=== PATIENT | female | born 1940 | race Caucasian/White ===

== ENCOUNTER → 2024-10-20 | Outpatient (CLI) | payer MEDICARE, BC, SELFPAY ==
--- NOTE | 2024-10-20 13:30 | XR_ITS ---
Examination: Shoulder,left, 3 views Technique: Shoulder AP internal rotation, AP external rotation, Y view shoulder, 3 views Exam date and time: October 20, 2024 1334 hours Comparison August 19, 2024 INDICATIONS: Acute fracture humeral neck June 13, 2024 FINDINGS: Healed fracture humeral neck Stable and satisfactory alignment Mild narrowing glenohumeral joint IMPRESSION: Healed fracture humeral neck with satisfactory alignment
== END | disposition home or self-care (01) ==
PROVIDERS: PCP Physician Assistant; Referring Provider Orthopaedic Surgery; Visit Provider Orthopaedic Surgery
DX: Z87.81 Personal history of (healed) traumatic fracture (principal)
CPT/HCPCS: 73030

== ENCOUNTER 2024-10-24 05:40 | Emergency (ER) | payer MEDICARE, BC, SELFPAY ==
[2024-10-24 05:41] VITALS: BMI 32.2
[2024-10-24 05:46] VITALS: BP 163/93; PULSE 109; RESP 18; TEMP 37.3; O2SAT 98
--- NOTE | 2024-10-24 06:23 | PD.EDRME ---
Rapid Medical Screening Exam RME Arrival date/time: 10/24/24 05:40 Chief Complaint: Abdominal Pain Time Seen by Provider: 10/24/24 06:09 Vital signs: Vital Signs Temperature 99.2 F 10/24/24 05:46 Pulse Rate 109 H 10/24/24 05:46 Respiratory Rate 18 10/24/24 05:46 Blood Pressure 163/93 H 10/24/24 05:46 Pulse Oximetry (%) 98 10/24/24 05:46 RME Narrative: lower abdominal cramping, intermittent diarrhea x2 days
[2024-10-24 07:28] LABS: Collection Type, Urine Clean Catch
[2024-10-24 07:29] LABS: Basophils # (Auto) 0.1 Thou/mm3 (0.0-0.2); Basophils % (Auto) 0 % (0-2.5); Eosinophils # (Auto) 0.4 Thou/mm3 (0.0-0.5); Eosinophils % (Auto) 2 % (0-10); Hematocrit 38.2 % (36.0-46.0); Hemoglobin 12.5 g/dL (12.0-16.0); Immature Granulocytes % (Auto) 0 % (0-0); Immature Granulocytes Auto 0.08 Thou/mm3 (0.00-0.00); Lymphocytes # (Auto) 1.9 Thou/mm3 (1.0-4.8); Lymphocytes % (Auto) 10 % (10-50); Mean Corpuscular HGB Conc 32.7 g/dl (31.0-37.0); Mean Corpuscular Hemoglobin 30.3 pg (25.0-35.0); Mean Corpuscular Volume 93 fL (80-100); Monocytes # (Auto) 1.4 Thou/mm3 (0.0-0.8); Monocytes % (Auto) 8 % (0-12); Neutrophils # (Auto) 14.1 Thou/mm3 (1.8-7.7); Neutrophils % (Auto) 79 % (37-80); Nucleated Red Blood Cell % 0 /100 WBC (0); Platelet Count 297 Thou/mm3 (140-440); RDW Standard Deviation 45.1 fL (36.4-46.3); Red Blood Count 4.13 Miln/mm3 (4.00-5.20); White Blood Count 17.9 Thou/mm3 (3.6-11.0)
[2024-10-24 07:39] LABS: Bilirubin,Urine Negative (Negative); Blood,Urine Trace (Negative); Clarity,Urine Clear (Clear/Hazy); Color,Urine Lt-Yellow (Lt Yel-Yel); Glucose, Urine Negative (Negative); Ketones,Urine Negative (Negative); Leukocyte Esterase,Urine Positive (Negative); Nitrite,Urine Negative (Negative); PH,Urine 5.5 (5.0-7.0); Protein,Urine Trace (Neg - Trace); RBC,Urine 3 /hpf (0-3); Specific Gravity,Urine 1.015 (1.001-1.035); Squamous Epithelial Cell,Urine 2 /hpf (0-5); Urobilinogen,Urine Negative mg/dL (0.0-1.0); WBC,Urine 4 /hpf (0-5)
[2024-10-24 07:53] LABS: Alanine Aminotransferase 9 U/L (10-49); Albumin, Serum 4.7 gm/dL (3.4-4.8); Albumin/Globulin Ratio 1.7 (1.2-2.2); Alkaline Phosphatase 86 U/L (46-116); Anion Gap 6 (7-16); Aspartate Amino Transferase 13 U/L (0-34); BUN/Creatinine Ratio 13 Ratio (12-20); Bilirubin,Total 0.6 mg/dL (0.3-1.2); Blood Urea Nitrogen 16 mg/dL (9-23); Calcium 9.8 mg/dL (8.3-10.6); Calcium (Corrected) 9.8 mg/dL (8.5-10.1); Carbon Dioxide 26.9 mMol/L (20.0-31.0); Chloride 104 mMol/L (98-107); Creatinine (Component) 1.2 mg/dL (0.6-1.3); Estimated Creatinine Clearance 36.1 mL/min (>60); Globulin 2.8 gm/dL (2.3-3.5); Glucose 155 mg/dL (74-106); Lipase 43 U/L (12-53); Osmolality,Calculated 278 (275-295); Potassium 4.4 mMol/L (3.4-5.1); Sodium 137 mMol/L (136-145); Total Protein 7.5 gm/dL (5.7-8.2); eGFR 45 See Note
--- NOTE | 2024-10-24 08:00 | XR_ITS ---
Examination: CT abdomen with intravenous contrast CT pelvis with intravenous contrast 2-D coronal reconstructions 2-D sagittal reconstructions Date and time of exam:October 24, 2024 1010 hrs. Comparison May 04, 2024 Indications: Lower abdominal pain beginning 3 days ago, history acute diverticulitis May 04, 2024. CTDI: vol (mGy) 11 DLP: (mGycm) 546 Technique: Multiple axial sections of the abdomen and pelvis have been obtained. 64 slice high-resolution scanner used. 3 mm axial sections have been obtained, post intravenous injection 60 cc [id number] 2-D sagittal, coronal reconstructions obtained. Low dose protocols were performed. One or more of the following dose reduction techniques were used; automated exposure control, adjustment of the mA and/or KV according to patient size, use of iterative reconstruction technique. Findings: No focal liver or splenic lesions No gallstones Pancreatic calcifications Atrophic right kidney No renal or ureteral calculi, no hydronephrosis Heavy abdominal aortic calcification no aneurysmal dilatation Tiny fat-containing umbilical hernia Normal appendix Colonic diverticulosis Acute diverticulitis sigmoid colon, no peridiverticular abscess Mild thickening of the urinary bladder wall Advanced disc narrowing L5-S1 Impression: Acute sigmoid diverticulitis, no pelvic abscess
[2024-10-24] MEDS: DICYCLOMINE 10 MG CAPSULE 20 MG PO (10:32)
--- NOTE | 2024-10-24 10:55 | EDNOTE_ITS ---
ED Abdominal Pain RME/HPI General Chief Complaint: Abdominal Pain Stated complaint: LOWER ABD PAIN Time seen by provider: 10/24/24 06:09 Arrival date/time: 10/24/24 05:40 Source: patient, RN notes reviewed and old records reviewed Mode of arrival: ambulatory Limitations: no limitations RME / HPI RME / HPI narrative: 84yof presents to ED for generalized lower abdominal cramping, intermittent diarrhea x2 days. Hx diverticulitis in past. No fever, n/v, bloody stools or urinary symptoms reported. Patient took tylenol last night with mild relief. Related Data Home Medications ?Medication ?Instructions ?Recorded ?Confirmed levothyroxine 50 mcg tablet 50 mcg PO EVERYOTHERDAY 06/29/18 09/16/22 ezetimibe 10 mg tablet 10 mg PO QDAY 03/12/21 09/16/22 lisinopril 40 mg tablet 20 mg PO QDAY 03/12/21 09/16/22 cholecalciferol (vitamin D3) 25 25 mcg PO QDAY 09/16/22 09/16/22 mcg (1,000 unit) tablet (Vitamin D3) Previous Rx's ?Medication ?Instructions ?Recorded ciprofloxacin HCl 500 mg tablet 500 mg PO BID #20 tabs 09/18/23 (Cipro) amoxicillin 875 mg-potassium 1 tab PO BID #20 tabs 10/01/23 clavulanate 125 mg tablet amoxicillin 875 mg-potassium 1 tab PO Q12H #14 tabs 11/23/23 clavulanate 125 mg tablet dicyclomine 10 mg capsule 10 mg PO TID PRN abdominal pain 11/23/23 #20 caps ciprofloxacin HCl 500 mg tablet 500 mg PO BID #10 tabs 02/17/24 (Cipro) dicyclomine 20 mg tablet 20 mg PO BID #14 tabs 02/17/24 metronidazole 500 mg tablet 500 mg PO BID #10 tabs 02/17/24 hydrocodone 5 mg-acetaminophen 325 1 tab PO Q6H PRN pain #14 tabs 06/13/24 mg tablet acetaminophen 500 mg tablet 1,000 mg (2 x 500 mg) PO Q6H PRN 10/24/24 (Tylenol Extra Strength) pain #30 tabs amoxicillin 875 mg-potassium 1 tab PO BID 10 days #20 tabs 10/24/24 clavulanate 125 mg tablet dicyclomine 20 mg tablet 20 mg PO Q6HR PRN abdominal pain 10/24/24 #30 tabs Allergies Allergy/AdvReac Type Severity Reaction Status Date / Time Sulfa (Sulfonamide Allergy Severe Swelling Verified 10/24/24 05:42 Antibiotics) of Lip/Tongue/Throat Review of Systems Review of Systems Systems Reviewed: All systems reviewed, normal except as documented Constitutional Constitutional: Denies chills and Denies fever(s) Gastrointestinal Gastrointestinal: Reports abdominal pain, Denies hematochezia, Reports loose stools, Denies melena, Denies nausea and Denies vomiting Genitourinary Genitourinary: Denies dysuria and Denies flank pain Past Medical History Past Medical History CARDIAC: Positive Cardiac Disorders, Hypercholesterolemia and Hypertension RESPIRATORY: Positive Asthma and Bronchitis GASTROINTESTINAL: Positive Gastrointestinal Disorders, Diverticulitis and Obesity GENITOURINARY: Positive Renal Disease and Kidney Stones REPRODUCTIVE: Positive Previous Pregnancies MUSCULOSKELETAL: Positive Musculoskeletal Disorders and Arthritis ENT: Positive Glaucoma ENDOCRINE: Positive Endocrine Disorders, Diabetes Mellitus Type 2 (Pioglitazone pills.) and Hypothyroidism HEMATOLOGIC: Positive Blood Disorders Surgical History SURGICAL: Positive Vascular Surgery, Arthroscopy and Hysterectomy Social History SMOKING STATUS: Never smoker ED Exam General Limitations: Present no limitations General appearance: Present alert, in no apparent distress and obese Head Head exam: Present atraumatic and normocephalic Eye Eye exam: Present normal appearance, PERRL and EOMI ENT ENT exam: Present normal exam and mucous membranes moist Neck Neck exam: Present normal inspection and full ROM Chest Chest inspection: Present normal inspection and symmetric chest wall rise Respiratory Respiratory exam: Present normal lung sounds bilaterally; Absent respiratory distress Cardiovascular Cardiovascular exam: Present regular rate and normal rhythm Abdominal Exam Abdominal exam: Present soft and tenderness (mild, suprapubic); Absent distention, guarding or rebound Extremities Exam Extremities exam: Present normal inspection and full ROM Back Exam Back exam: Absent CVA tenderness (R) or CVA tenderness (L) Neurological Exam Neurological exam: Present alert and oriented X3 Psychiatric Psychiatric exam: Present normal affect and normal mood Skin Skin exam: Present warm, dry, intact and normal color Course Quality Measures none Orders Category Date Time Status CT Screening NOW Care 10/24/24 08:[address] abdomen pelvis w con Stat Exams 10/24/24 08:00 Completed CBC Stat Lab 10/24/24 07:13 Completed CMP [Comprehensive Metabolic Panel] Stat Lab 10/24/24 07:13 Completed Lipase Stat Lab 10/24/24 07:13 Completed UA [Urinalysis] Stat Lab 10/24/24 06:54 Completed Dicyclomine [Bentyl] Med 10/24/24 10:19 Discontinued 20 mg PO X1 ONE Vital Signs Vital signs: Vital Signs Temperature 99.2 F 10/24/24 05:46 Pulse Rate 109 H 10/24/24 05:46 Respiratory Rate 18 10/24/24 05:46 Blood Pressure 163/93 H 10/24/24 05:46 Pulse Oximetry (%) 98 10/24/24 05:46 Abdominal Pain MDM MDM Narrative MDM Narrative:: 84yof presents to ED for generalized lower abdominal cramping, intermittent diarrhea x2 days. Hx diverticulitis in past. No fever, n/v, bloody stools or urinary symptoms reported. Patient took tylenol last night with mild relief. Patient is non-toxic appearing, afebrile, vitals are stable. Non-surgical abdomen on exam. Offered admission however, patient feels comfortable with outpatient mgmt. Encouraged adequate fluids, pain mgmt, close pcp follow up. Stable for dc, RTED precautions given. Patient data External records reviewed:: [facility] previous records (06/13/24 ED visit for accidental fall) Clinical information provided by:: patient Social determinants that could affect healthcare access:: none Patient has the following chronic illnesses:: diverticulitis How is presenting disease/condition affected by chronic disease/condition?: caused by Evaluation data The following diagnostics were reviewed and interpreted by me:: lab results and radiology exam(s) Lab and/or radiology exams considered but not ordered:: none Interpretation Summary: wbc 17.[address] abd/pelvis: Impression: Acute sigmoid diverticulitis, no pelvic abscess Dictated By: Joselo Obrien MD Medications / Prescriptions Medications or Prescriptions considered but not ordered:: none Medication administrations:: Medication Administration History Discontinued Medications Dicyclomine HCl (Dicyclomine 10 Mg Capsule) 20 mg PO X1 ONE Stop: 10/24/24 10:20 Last Admin: 10/24/24 10:32 Dose: 20 mg Documented By: KF above medication administered in ED Consultations Consultation(s) initiated? (list below): No Diagnosis Differential diagnosis abdominal pain: abdominal pain, calculus of kidney, cons tipation, diverticulitis, small bowel obstruction and other (uti) Most likely diagnosis given after review of the tests above:: diverticulitis Admission Indicated Admission indicated?: not indicated Admission Request Was there a request for admission?: No Disposition Plan Disposition Plan: Discharge Discharge Attestation Discharge Attestation: The patient and all family members were given an opportunity to ask questions and understood the discharge instructions. Discharge instructions specifically effects, indications for sooner follow up or return to the emergency department, and the expected course of current diagnosis. Patient condition: Stable Discharge Plan Plan Patient Disposition: HOME (Self Care) Patient condition on transfer: Stable Prescriptions/Referrals Prescriptions/Med Rec: New amoxicillin-pot clavulanate 875-125 mg tablet 1 tab PO BID 10 Days Qty: 20 0RF acetaminophen [Tylenol Extra Strength] 500 mg tablet 1,000 mg PO Q6H PRN (Reason: pain) Qty: 30 0RF dicyclomine 20 mg tablet 20 mg PO Q6HR PRN (Reason: abdominal pain) Qty: 30 0RF No Action levothyroxine 50 mcg Tablet 50 mcg PO EVERYOTHERDAY lisinopril 40 mg Tablet 20 mg PO QDAY ezetimibe 10 mg Tablet 10 mg PO QDAY cholecalciferol (vitamin D3) [Vitamin D3] 25 mcg (1,000 unit) Tablet 25 mcg PO QDAY dicyclomine 10 mg capsule 10 mg PO TID PRN (Reason: abdominal pain) Qty: 20 0RF amoxicillin-pot clavulanate 875-125 mg tablet 1 tab PO Q12H Qty: 14 0RF ciprofloxacin HCl [Cipro] 500 mg tablet 500 mg PO BID Qty: 10 0RF metronidazole 500 mg tablet 500 mg PO BID Qty: 10 0RF dicyclomine 20 mg tablet 20 mg PO BID Qty: 14 0RF ciprofloxacin HCl [Cipro] 500 mg tablet 500 mg PO BID Qty: 20 0RF amoxicillin-pot clavulanate 875-125 mg tablet 1 tab PO BID Qty: 20 0RF hydrocodone-acetaminophen 5-325 mg tablet 1 tab PO Q6H MDD 4 PRN (Reason: pain) Qty: 14 0RF Referrals: Joleen Gibbs PA-C [Primary Care Provider] - In 1 week Problem List Clinical Impression: Diverticulitis Patient/Caregiver Discharge Instructions Education Materials: ED Diverticulitis Print Language: [place]an Stand Alone Forms: Jocy Award Info., Patient Portal Info Letter PA/DEBRIDGING MACHINE OPERATOR Supervising Physician PA/DEBRIDGING MACHINE OPERATOR Supervising Physician: Adriana
== END 2024-10-24 11:17 | disposition home or self-care (01) ==
PROVIDERS: Physician Assistant; Emergency Provider Emergency Medicine; PCP Physician Assistant
DX: K57.32 Diverticulitis of large intestine without perforation or abscess without bleeding (principal)
CPT/HCPCS: 36415; 74177; 80053; 81001; 83690; 85025; 99285; A4649; Q9967; A9270

== ENCOUNTER → 2024-11-05 | Outpatient (CLI) | payer MEDICARE, BC, SELFPAY ==
[2024-11-05 08:54] LABS: Glucose Estimated Average 163 mg/dL (80-131); Hemoglobin A1C 7.3 % Hgb (4.8-6.0)
[2024-11-05 09:19] LABS: Alanine Aminotransferase 12 U/L (10-49); Albumin, Serum 4.3 gm/dL (3.4-4.8); Albumin/Globulin Ratio 1.6 (1.2-2.2); Alkaline Phosphatase 79 U/L (46-116); Anion Gap 7 (7-16); Aspartate Amino Transferase 10 U/L (0-34); BUN/Creatinine Ratio 19 Ratio (12-20); Bilirubin,Total 0.3 mg/dL (0.3-1.2); Blood Urea Nitrogen 25 mg/dL (9-23); Calcium 9.8 mg/dL (8.3-10.6); Calcium (Corrected) 9.8 mg/dL (8.5-10.1); Cardiac Risk Estimate 4.3 RATIO (3.7-5.6); Chloride 105 mMol/L (98-107); Cholesterol 207 mg/dL (132-200); Creatinine (Component) 1.3 mg/dL (0.6-1.3); Globulin 2.7 gm/dL (2.3-3.5); Glucose 142 mg/dL (74-106); HDL Cholesterol 48 mg/dL (40-60); LDL Cholesterol,Calculated 130 mg/dL (0-130); Osmolality,Calculated 285 (275-295); Sodium 140 mMol/L (136-145); Thyroid Stimulating Hormone 2.78 uIU/mL (0.55-4.78); Triglycerides 145 mg/dL (30-150); eGFR 41 See Note
== END | disposition home or self-care (01) ==
LOC: COPL 06:41
PROVIDERS: PCP Family Medicine; Referring Provider Physician Assistant; Visit Provider Physician Assistant
DX: E78.5 Hyperlipidemia, unspecified (principal); E03.9 Hypothyroidism, unspecified; E11.65 Type 2 diabetes mellitus with hyperglycemia; I10 Essential (primary) hypertension
CPT/HCPCS: 36415; 80053; 80061; 83036; 84443

== ENCOUNTER 2024-11-24 10:09 | Emergency (ER) | payer MEDICARE, SELFPAY ==
[2024-11-24 10:10] VITALS: BP 147/84; PULSE 92; RESP 18; TEMP 36.7; O2SAT 99; BMI 32.8
--- NOTE | 2024-11-24 10:35 | XR_ITS ---
Examination: Foot, right, 3 views Technique: AP, oblique, lateral views foot, 3 views Date and time of exam: November 24, 2024 1048 hours INDICATIONS: Injury to the foot today, foot pain. FINDINGS: Severe osteopenia with areas of focal osteopenia Mild widening at the proximal interphalangeal joint fourth digit, clinical correlation advised Old deformity distal fifth metatarsal No acute fracture IMPRESSION: No definite acute fracture There is widening, mild at the proximal interphalangeal joint fourth digit, clinical correlation advised Given the severe osteopenia, suggest short-term follow-up foot films as clinically warranted
--- NOTE | 2024-11-24 10:35 | XR_ITS ---
EXAMINATION: Ankle, right 3 views . Technique: Ankle AP, oblique, lateral 3 views Date and time of exam: November 24, 2024 1048 hours INDICATIONS: Ankle sprain today with ankle pain FINDINGS: Severe osteopenia No acute fracture No ankle dislocation IMPRESSION: No acute fracture Given the severe osteopenia, recommend 1-2 day follow-up ankle films
--- NOTE | 2024-11-24 11:34 | EDNOTE_ITS ---
<Statement entered by Nithya Obando MD - 11/24/24 16:18> As co-signing physician, I was present and available for consult prn. I concur with the plan and care as documented by the midlevel provider. Lower Extremity Injury RME/HPI General Chief Complaint: Ankle/Foot Injury Stated Complaint: r foot injury Time Seen by Provider: 11/24/24 10:35 Arrival date/time: 11/24/24 10:09 84-year-old female presents emergency department complains of right ankle and foot injury today patient reports no other injuries Limitations: no limitations Related Data Home Medications ?Medication ?Instructions ?Recorded ?Confirmed levothyroxine 50 mcg tablet 50 mcg PO EVERYOTHERDAY 06/29/18 09/16/22 ezetimibe 10 mg tablet 10 mg PO QDAY 03/12/21 09/16/22 lisinopril 40 mg tablet 20 mg PO QDAY 03/12/21 09/16/22 cholecalciferol (vitamin D3) 25 25 mcg PO QDAY 09/16/22 09/16/22 mcg (1,000 unit) tablet (Vitamin D3) Previous Rx's ?Medication ?Instructions ?Recorded ciprofloxacin HCl 500 mg tablet 500 mg PO BID #20 tabs 09/18/23 (Cipro) amoxicillin 875 mg-potassium 1 tab PO BID #20 tabs 10/01/23 clavulanate 125 mg tablet amoxicillin 875 mg-potassium 1 tab PO Q12H #14 tabs 11/23/23 clavulanate 125 mg tablet dicyclomine 10 mg capsule 10 mg PO TID PRN abdominal pain 11/23/23 #20 caps ciprofloxacin HCl 500 mg tablet 500 mg PO BID #10 tabs 02/17/24 (Cipro) dicyclomine 20 mg tablet 20 mg PO BID #14 tabs 02/17/24 metronidazole 500 mg tablet 500 mg PO BID #10 tabs 02/17/24 hydrocodone 5 mg-acetaminophen 325 1 tab PO Q6H PRN pain #14 tabs 06/13/24 mg tablet acetaminophen 500 mg tablet 1,000 mg (2 x 500 mg) PO Q6H PRN 10/24/24 (Tylenol Extra Strength) pain #30 tabs dicyclomine 20 mg tablet 20 mg PO Q6HR PRN abdominal pain 10/24/24 #30 tabs Allergies Allergy/AdvReac Type Severity Reaction Status Date / Time Sulfa (Sulfonamide Allergy Severe Swelling Verified 11/24/24 10:12 Antibiotics) of Lip/Tongue/Throat Review of Systems Review of Systems Systems Reviewed: All systems reviewed, normal except as documented Constitutional Constitutional: Reports system reviewed and no additional complaints, except as documented, Denies fever(s) and Denies headache(s) Eyes Eyes: Reports system reviewed and no additional complaints, except as documented and Denies blurry vision ENT Ears, Nose, Mouth, and Throat: Reports system reviewed and no additional complaints, except as documented, Denies headache(s), Denies nasal congestion and Denies nasal discharge Cardiovascular Cardiovascular: Reports system reviewed and no additional complaints, except as documented, Denies chest pain and Denies dyspnea Respiratory Respiratory: Reports system reviewed and no additional complaints, except as documented, Denies chest congestion, Denies cough and Denies dyspnea Gastrointestinal Gastrointestinal: Reports system reviewed and no additional complaints, except as documented and Denies abdominal pain Musculoskeletal Musculoskeletal: Reports system reviewed and no additional complaints, except as documented, Reports arthralgias, Denies deformity, Denies joint swelling, Denies numbness, Reports stiffness and Denies tingling Integumentary/Breasts Skin/Breast: Reports system reviewed and no additional complaints, except as documented and Denies rash Neurologic Neurologic: Reports system reviewed and no additional complaints, except as documented, Reports as per HPI, Denies headache(s), Denies numbness and Denies tingling Past Medical History Past Medical History NEUROLOGIC: Negative Neurological Disorders or Seizures CARDIAC: Positive Cardiac Disorders, Hypercholesterolemia and Hypertension; Negative Congestive Heart Failure RESPIRATORY: Positive Asthma and Bronchitis; Negative Chronic Obstructive Pulmonary Disease (COPD) GASTROINTESTINAL: Positive Gastrointestinal Disorders, Diverticulitis and Obesity GENITOURINARY: Positive Renal Disease and Kidney Stones; Negative Genitourinary Disorders REPRODUCTIVE: Positive Previous Pregnancies MUSCULOSKELETAL: Positive Musculoskeletal Disorders and Arthritis ENT: Positive Glaucoma ENDOCRINE: Positive Endocrine Disorders, Diabetes Mellitus Type 2 (Pioglitazone pills.) and Hypothyroidism; Negative Diabetes Mellitus Type 1 HEMATOLOGIC: Positive Blood Disorders; Negative Sickle Cell Disease OTHER HISTORY: Negative Autoimmune Disease, Blood Transfusions, Anesthesia Reactions or Cancer Surgical History SURGICAL: Positive Vascular Surgery, Arthroscopy and Hysterectomy Social History SMOKING STATUS: Never smoker ED Exam General Limitations: Present no limitations General appearance: Present alert and in no apparent distress Head Head exam: Present atraumatic Eye Eye exam: Present normal appearance, PERRL and EOMI ENT ENT exam: Present normal exam, normal oropharynx and mucous membranes moist Neck Neck exam: Present normal inspection, full ROM and trachea midline Chest Chest inspection: Present normal inspection and symmetric chest wall rise Respiratory Respiratory exam: Present normal lung sounds bilaterally Cardiovascular Cardiovascular exam: Present regular rate, normal rhythm and normal heart sounds Abdominal Exam Abdominal exam: Present soft and normal bowel sounds Extremities Exam Extremities exam: Present full ROM, normal capillary refill and other (Right foot, right ankle pain) Back Exam Back exam: Present normal inspection and full ROM Neurological Exam Neurological exam: Present alert, oriented X3 and CN II-XII intact Psychiatric Psychiatric exam: Present normal affect and normal mood Skin Skin exam: Present warm, dry, intact and normal color Course Quality Measures none Orders Category Date Time Status XR ankle comp RT min 3V Stat Exams 11/24/24 10:35 Completed XR foot comp RT min 3V Stat Exams 11/24/24 10:35 Completed Vital Signs Vital signs: Vital Signs Temperature 98.1 F 11/24/24 10:10 Pulse Rate 92 11/24/24 10:10 Respiratory Rate 18 11/24/24 10:10 Blood Pressure 147/84 H 11/24/24 10:10 Pulse Oximetry (%) 99 11/24/24 10:10 Oxygen Delivery Method Room Air 11/24/24 10:10 O2 saturation 99% room air within normal limits Extremity Injury, Lower MDM Narrative MDM Narrative:: 84-year-old female presents emergency department complains of right ankle and foot injury today patient reports no other injuries On exam patient well-appearing patient does not appear ill or toxic Imaging obtained no acute fracture or dislocation noted As patient has significant arthritis and osteopenia patient instructed have repeat x-ray if symptoms persist or worsen Patient already has her own ankle brace in place Patient discharged home in no distress to follow-up with primary care doctor in the next 24 to 48 hours and for any worsening symptoms to return to the ER immediately Patient data External records reviewed:: [facility] previous records Clinical information provided by:: patient Social determinants that could affect healthcare access:: none Patient has the following chronic illnesses:: See history How is presenting disease/condition affected by chronic disease/condition?: uneffected by Evaluation data The following diagnostics were reviewed and interpreted by me:: radiology exam(s) Lab and/or radiology exams considered but not ordered:: Radiology obtain Interpretation Summary: Reviewed by me Medications / Prescriptions Medications or Prescriptions considered but not ordered:: Given Medication administrations:: Given Consultations Consultation(s) initiated? (list below): No Diagnosis Extremity Injury, Lower Differential Diagnosis: ankle sprain and strain and ankle fracture Most likely diagnosis given after review of the tests above:: Foot sprain Admission Indicated Admission indicated?: not indicated Admission Request Was there a request for admission?: No Disposition Plan Disposition Plan: Discharge Discharge Attestation Discharge Attestation: The patient and all family members were given an opportunity to ask questions and understood the discharge instructions. Discharge instructions specifically effects, indications for sooner follow up or return to the emergency department, and the expected course of current diagnosis. Patient condition: Stable Discharge Plan Plan Patient Disposition: HOME (Self Care) Disposition Comment: Stable Prescriptions/Referrals Prescriptions/Med Rec: No Action levothyroxine 50 mcg Tablet 50 mcg PO EVERYOTHERDAY lisinopril 40 mg Tablet 20 mg PO QDAY ezetimibe 10 mg Tablet 10 mg PO QDAY cholecalciferol (vitamin D3) [Vitamin D3] 25 mcg (1,000 unit) Tablet 25 mcg PO QDAY dicyclomine 10 mg capsule 10 mg PO TID PRN (Reason: abdominal pain) Qty: 20 0RF amoxicillin-pot clavulanate 875-125 mg tablet 1 tab PO Q12H Qty: 14 0RF ciprofloxacin HCl [Cipro] 500 mg tablet 500 mg PO BID Qty: 10 0RF metronidazole 500 mg tablet 500 mg PO BID Qty: 10 0RF dicyclomine 20 mg tablet 20 mg PO BID Qty: 14 0RF acetaminophen [Tylenol Extra Strength] 500 mg tablet 1,000 mg PO Q6H PRN (Reason: pain) Qty: 30 0RF dicyclomine 20 mg tablet 20 mg PO Q6HR PRN (Reason: abdominal pain) Qty: 30 0RF ciprofloxacin HCl [Cipro] 500 mg tablet 500 mg PO BID Qty: 20 0RF amoxicillin-pot clavulanate 875-125 mg tablet 1 tab PO BID Qty: 20 0RF hydrocodone-acetaminophen 5-325 mg tablet 1 tab PO Q6H MDD 4 PRN (Reason: pain) Qty: 14 0RF Referrals: Joleen Gibbs PA-C [Primary Care Provider] - In 1 week Problem List Clinical Impression: Ankle sprain Patient/Caregiver Discharge Instructions Education Materials: ED Ankle Sprain (Adult) Additional Instructions: If your symptoms persist please have repeat x-rays in 3 to 5 days for worsening symptoms or concerns to return to the ER immediately Print Language: U[place] Stand Alone Forms: Jocy Award Info., Patient Portal Info Letter PA/PARISH VISITOR Supervising Physician PA/PARISH VISITOR Supervising Physician: Dr. OBANDO
== END 2024-11-24 11:49 | disposition home or self-care (01) ==
PROVIDERS: Emergency Provider Emergency Medicine; PCP Physician Assistant
DX: S93.401A Sprain of unspecified ligament of right ankle, initial encounter (principal); S99.921A Unspecified injury of right foot, initial encounter; M85.89 Other specified disorders of bone density and structure, multiple sites; M19.90 Unspecified osteoarthritis, unspecified site; X58.XXXA Exposure to other specified factors, initial encounter
CPT/HCPCS: 73610; 73630; 99283

== ENCOUNTER → 2024-12-28 | Outpatient (CLI) | payer MEDICARE, BC, SELFPAY ==
[2024-12-28 15:09] LABS: Collection Type, Urine Clean Catch
[2024-12-28 15:42] LABS: Basophils # (Auto) 0.1 Thou/mm3 (0.0-0.2); Basophils % (Auto) 1 % (0-2.5); Eosinophils # (Auto) 0.8 Thou/mm3 (0.0-0.5); Eosinophils % (Auto) 8 % (0-10); Hematocrit 36.8 % (36.0-46.0); Hemoglobin 11.7 g/dL (12.0-16.0); Immature Granulocytes % (Auto) 0 % (0-0); Immature Granulocytes Auto 0.04 Thou/mm3 (0.00-0.00); Lymphocytes % (Auto) 21 % (10-50); Mean Corpuscular HGB Conc 31.8 g/dl (31.0-37.0); Mean Corpuscular Volume 91 fL (80-100); Monocytes # (Auto) 0.9 Thou/mm3 (0.0-0.8); Monocytes % (Auto) 9 % (0-12); Neutrophils # (Auto) 5.9 Thou/mm3 (1.8-7.7); Neutrophils % (Auto) 61 % (37-80); Nucleated Red Blood Cell % 0 /100 WBC (0); Platelet Count 210 Thou/mm3 (140-440); RDW Standard Deviation 46.6 fL (36.4-46.3); Red Blood Count 4.03 Miln/mm3 (4.00-5.20); White Blood Count 9.7 Thou/mm3 (3.6-11.0)
[2024-12-28 15:43] LABS: Bilirubin,Urine Negative (Negative); Blood,Urine Negative (Negative); Clarity,Urine Clear (Clear/Hazy); Color,Urine Lt-Yellow (Lt Yel-Yel); Glucose, Urine Negative (Negative); Ketones,Urine Negative (Negative); Leukocyte Esterase,Urine Negative (Negative); Nitrite,Urine Negative (Negative); PH,Urine 5.5 (5.0-7.0); Protein,Urine Negative (Neg - Trace); RBC,Urine 1 /hpf (0-3); Specific Gravity,Urine 1.023 (1.001-1.035); Squamous Epithelial Cell,Urine 1 /hpf (0-5); Urobilinogen,Urine Negative mg/dL (0.0-1.0); WBC,Urine < 1 /hpf (0-5)
[2024-12-28 15:50] LABS: Glucose Estimated Average 151 mg/dL (80-131); Hemoglobin A1C 6.9 % Hgb (4.8-6.0)
[2024-12-28 15:56] LABS: Albumin, Serum 4.1 gm/dL (3.4-4.8); Anion Gap 8 (7-16); BUN/Creatinine Ratio 22 Ratio (12-20); Blood Urea Nitrogen 28 mg/dL (9-23); Calcium 9.9 mg/dL (8.3-10.6); Calcium (Corrected) 9.9 mg/dL (8.5-10.1); Carbon Dioxide 28.6 mMol/L (20.0-31.0); Chloride 102 mMol/L (98-107); Creatinine (Component) 1.3 mg/dL (0.6-1.3); Glucose 184 mg/dL (74-106); Osmolality,Calculated 288 (275-295); Phosphorous 3.7 mg/dL (2.4-5.1); Potassium 4.4 mMol/L (3.4-5.1); Sodium 139 mMol/L (136-145); eGFR 41 See Note
[2024-12-28 15:58] LABS: Parathyroid Hormone Intact 67.5 pg/ml (18.5-88.0)
[2024-12-28 16:05] LABS: Vitamin D 25 Hydroxy Total 31.2 ng/mL (7.3-40.2)
== END | disposition home or self-care (01) ==
PROVIDERS: PCP Physician Assistant; Referring Provider Internal Medicine Nephrology; Visit Provider Internal Medicine Nephrology
DX: E55.9 Vitamin D deficiency, unspecified (principal); E11.9 Type 2 diabetes mellitus without complications
CPT/HCPCS: 36415; 80069; 81001; 82306; 83036; 83970; 85025

== ENCOUNTER 2025-04-06 09:07 | Emergency (ER) | payer MEDICARE, BC, SELFPAY ==
--- NOTE | 2025-04-06 09:38 | XR_ITS ---
Examination: CT abdomen and pelvis without contrast. Coronal 3-D reconstructions. Sagittal 2-D reconstructions. Date and time of exam:April 06, 2025 1024 hours Comparison October 24, 2024 INDICATIONS: Right lower abdominal pain onset today, history acute sigmoid diverticulitis October 2024 CTDI: vol (mGy): 10.1 DLP: (mGycm): 580 Technique: Axial images of the abdomen have been obtained, 3 mm slice thickness Intravenous contrast material has not been administered. Low dose protocols were performed. One or more of the following dose reduction techniques were used; automated exposure control, adjustment of the mA and/or KV according to patient size, use of iterative reconstruction technique. Findings: No focal liver or splenic lesion No gallstones No pancreatic or adrenal mass Atrophic right kidney Moderate bilateral renal parenchymal scar formation Heavy abdominal aortic calcification no aneurysmal dilatation 10 mm fat-containing umbilical hernia Normal appendix Colonic diverticulosis, no current diverticulitis Contracted urinary bladder No pelvic mass Prominent osteopenia Advanced disc narrowing L5-S1 IMPRESSION: Atrophic right kidney Moderate bilateral renal parenchymal scar formation No renal or ureteral calculi, no hydronephrosis Normal appendix Colonic diverticulosis, no current diverticulitis
--- NOTE | 2025-04-06 09:38 | PD.EDRME ---
Rapid Medical Screening Exam RME Arrival date/time: 04/06/25 09:07 84-year-old female with a history of hypertension, hypothyroidism presents to the emergency room with a chief complaint of right-sided flank pain and right lower abdominal pain x 2 weeks I have greeted and performed a focused initial assessment of this patient. A comprehensive ED assessment and evaluation of the patient, analysis of all test results, and completion of the medical decision making process will be conducted by additional ED providers. Chief Complaint: Urogenital-Female Vital signs reviewed by provider: Yes
[2025-04-06 10:04] LABS: Basophils % (Auto) 1 % (0-2.5); Eosinophils # (Auto) 0.4 Thou/mm3 (0.0-0.5); Eosinophils % (Auto) 6 % (0-10); Hematocrit 36.5 % (36.0-46.0); Immature Granulocytes % (Auto) 0 % (0-0); Immature Granulocytes Auto 0.01 Thou/mm3 (0.00-0.00); Lymphocytes # (Auto) 1.8 Thou/mm3 (1.0-4.8); Lymphocytes % (Auto) 28 % (10-50); Mean Corpuscular HGB Conc 32.9 g/dl (31.0-37.0); Mean Corpuscular Hemoglobin 29.3 pg (25.0-35.0); Mean Corpuscular Volume 89 fL (80-100); Monocytes # (Auto) 0.6 Thou/mm3 (0.0-0.8); Monocytes % (Auto) 9 % (0-12); Neutrophils # (Auto) 3.5 Thou/mm3 (1.8-7.7); Neutrophils % (Auto) 56 % (37-80); Nucleated Red Blood Cell % 0 /100 WBC (0); Platelet Count 132 Thou/mm3 (140-440); RDW Standard Deviation 46.5 fL (36.4-46.3); White Blood Count 6.3 Thou/mm3 (3.6-11.0)
[2025-04-06 10:06] LABS: Collection Type, Urine Clean Catch
[2025-04-06 10:26] LABS: Bilirubin,Urine Negative (Negative); Blood,Urine Trace (Negative); Clarity,Urine Clear (Clear/Hazy); Color,Urine Yellow (Lt Yel-Yel); Glucose, Urine Negative (Negative); Ketones,Urine Negative (Negative); Leukocyte Esterase,Urine Positive (Negative); Nitrite,Urine Negative (Negative); Protein,Urine Trace (Neg - Trace); RBC,Urine 4 /hpf (0-3); Specific Gravity,Urine 1.025 (1.001-1.035); Squamous Epithelial Cell,Urine 4 /hpf (0-5); Urobilinogen,Urine Negative mg/dL (0.0-1.0); WBC,Urine 11 /hpf (0-5)
[2025-04-06 10:28] LABS: Alanine Aminotransferase 12 U/L (10-49); Albumin, Serum 4.2 gm/dL (3.4-4.8); Albumin/Globulin Ratio 1.4 (1.2-2.2); Alkaline Phosphatase 68 U/L (46-116); Anion Gap 10 (7-16); Aspartate Amino Transferase 29 U/L (0-34); BUN/Creatinine Ratio 17 Ratio (12-20); Bilirubin,Total 0.4 mg/dL (0.3-1.2); Blood Urea Nitrogen 22 mg/dL (9-23); Calcium 8.6 mg/dL (8.3-10.6); Calcium (Corrected) 8.6 mg/dL (8.5-10.1); Carbon Dioxide 24.9 mMol/L (20.0-31.0); Chloride 106 mMol/L (98-107); Creatinine (Component) 1.3 mg/dL (0.6-1.3); Globulin 2.9 gm/dL (2.3-3.5); Glucose 132 mg/dL (74-106); Lipase 53 U/L (12-53); Osmolality,Calculated 286 (275-295); Potassium 4.4 mMol/L (3.4-5.1); Sodium 141 mMol/L (136-145); Total Protein 7.1 gm/dL (5.7-8.2); eGFR 41 See Note
[2025-04-06 10:38] VITALS: BP 177/64; PULSE 90; RESP 19; TEMP 36.8; O2SAT 97
--- NOTE | 2025-04-06 11:00 | EDNOTE_ITS ---
<Statement entered by Nithya Obando MD - 04/07/25 06:14> I, Nithya Obando MD, have reviewed the history, exam, and assessment of the patient. I have evaluated the patient independently and agree with the plan of care documented by [ ]. All diagnostic studies were reviewed and discussed. I confirm the diagnosis as documented by the Resident. I was present during the Medical Decision Making for this patient. The patient's plan of care was created between myself and the Resident and consistent with our discussion of the patient's case. ED Female Urogenital RME/HPI General Chief complaint: Urogenital-Female Stated complaint: RIGHT FLANK PAIN X SEVERAL WKS; HX UTI & STONES Arrival date/time: 04/06/25 09:07 RME / HPI RME / HPI Narrative: 04/06/25 The patient is an 84-year-old female with significant past medical history of recurrent UTI, hypertension, hypothyroidism, diabetes mellitus type 2 and diverticulitis presented to ED with chief complaint of right flank pain and lower abdominal pain that has been worsening for past 1 to 2 weeks. She reported that she was recently treated for UTI about 3 to 4 weeks ago, with Macrobid, likely for with she is in sensitive. She reported 1 episode of fever and chills about 3 to 4 days ago, associated with body ache and flulike syndrome. She also admitted burning urination, dysuria and frequency. She denied any headache, lightheadedness, chest pain, SOB, epigastric pain, leg swelling, nausea or vomiting. Related Data Home Medications ?Medication ?Instructions ?Recorded ?Confirmed levothyroxine 50 mcg tablet 50 mcg PO EVERYOTHERDAY 09/16/22 ezetimibe 10 mg tablet 10 mg PO QDAY 03/12/2109/16 lisinopril 40 mg tablet 20 mg PO QDAY 03/12/2109/16 cholecalciferol (vitamin D3) 25 25 mcg PO QDAY 2 09/16/22 mcg (1,000 unit) tablet (Vitamin D3) Previous Rx's ?Medication ?Instructions ?Recorded ciprofloxacin HCl 500 mg tablet 500 mg PO BID #20 tabs 09/18/23 (Cipro) amoxicillin 875 mg-potassium 1 tab PO BID #20 tabs clavulanate 125 mg tablet amoxicillin 875 mg-potassium 1 tab PO Q12H #14 tabs clavulanate 125 mg tablet dicyclomine 10 mg capsule 10 mg PO TID PRN abdominal p ain 11/23/23 #20 caps ciprofloxacin HCl 500 mg tablet 500 mg PO BID #10 tabs 02/17/24 (Cipro) dicyclomine 20 mg tablet 20 mg PO BID #14 tabs metronidazole 500 mg tablet 500 mg PO BID #10 tabs 08/03 hydrocodone 5 mg-acetaminophen 325 1 tab PO Q6H PRN pa in #14 tabs 06/13/24 mg tablet acetaminophen 500 mg tablet 1,000 mg (2 x 500 mg) PO Q 6H PRN 10/24/24 (Tylenol Extra Strength) pain #30 tabs dicyclomine 20 mg tablet 20 mg PO Q6HR PRN abdominal pain 10/24/24 #30 tabs acetaminophen 500 mg tablet 500 mg PO Q6H PRN pain #20 tabs 04/06/25 doxycycline hyclate 100 mg tablet 100 mg PO BID #14 ta bs 04/06/25 Allergies Allergy/AdvReac Type Severity Reaction Status Date / Time Sulfa (Sulfonamide Allergy Severe Swelling Verified 04/06/25 09:11 Antibiotics) of Lip/Tongue/Throat Review of Systems Review of Systems Systems Reviewed: All systems reviewed, normal except as documented (Above) ED Exam Narrative Physical exam: General: Elderly, cooperative female, no acute distress, Alert and Oriented x 3 HEENT: Moist mucous membranes, oropharynx clear Neck: Supple, No masses, No JVD CVS: S1S2 Regular rate and rhythm, No murmurs, rubs or gallops Lungs: Clear to auscultation with no accessory use, no wheeze no rhonchi Abd: Soft, right hypogastric tenderness/ND, +BS, no organomegaly, no renal angle tenderness Ext: No edema, warm and well perfused Skin: No rash Psych: Appropriate mood and affect Course Quality Measures none Orders Category Date Time Status CT abdomen pelvis wo con Stat Exams 04/06/25 09:38 Completed Blood Culture (Lab) Stat Lab 04/06/25 11:21 Received CBC Stat Lab 04/06/25 09:48 Completed CMP [Comprehensive Metabolic Panel] Stat Lab 04/06/25 09:48 Completed Lipase Stat Lab 04/06/25 09:48 Completed UA [Urinalysis] Stat Lab 04/06/25 09:59 Completed Urine Culture Stat Lab 04/06/25 09:59 Received Lisinopril [Prinivil] Med 04/06/25 11:06 Discontinued 20 mg PO X1 ONE Lisinopril [Prinivil] Med 04/06/25 11:46 Discontinued 20 mg PO X1 ONE Lisinopril [Prinivil] Med 04/06/25 11:49 Discontinued 40 mg PO X1 ONE amLODIPine BESYLATE [Norvasc] Med 04/06/25 11:06 Discontinued 10 mg PO X1 ONE cefTRIAXone/D5w 1gm IV premix [Rocephin/D5w 1gm IV Med 04/06/25 11:05 Discontinued premix] 1 gm in 50 ml IV X1 Vital Signs Vital signs: Vital Signs Temperature 98.2 F 04/06/25 10:38 Pulse Rate 90 04/06/25 10:38 Respiratory Rate 19 04/06/25 10:38 Blood Pressure 177/64 H 04/06/25 10:38 Pulse Oximetry (%) 97 04/06/25 10:38 Oxygen Delivery Method Room Air 04/06/25 10:38 Urogenital - Female MDM Narrative MDM Narrative:: The patient is an 84-year-old female with significant past medical history of recurrent UTI, hypertension, hypothyroidism, diabetes mellitus type 2 and diverticulitis presented to ED with chief complaint of right flank pain and lower abdominal pain that has been worsening for past 1 to 2 weeks. She reported that she was recently treated for UTI about 3 to 4 weeks ago, with Macrobid, likely for with she is in sensitive. She reported 1 episode of fever and chills about 3 to 4 days ago, associated with body ache and flulike syndrome. She also admitted burning urination, dysuria and frequency. She denied any headache, lightheadedness, chest pain, SOB, epigastric pain, leg swelling, nausea or vomiting. Her blood pressure was 177/64, pulse 90, RR 19, temperature 98.2, saturating 97% on room air. CBC revealed white count of 6.3, hemoglobin 12.0, platelet 132, sodium 141, less than 4.4, GFR 41, creatinine 1.3, blood sugar 132, UA revealed leukocyte esterase positive, WBC 11, RBC 4 likely after passing ureteric stone with no bacteria is seen. Abdomen/pelvis CT revealed atrophic right kidney, moderate bilateral renal parenchymal scar formation, no renal or ureteral calculi, no hydronephrosis, normal appendix, colonic diverticulosis, no current diverticulitis. Urine and blood cultures pending. The patient was given ceftriaxone 1 g IV x 1, and lisinopril 40 Mg p.o. x 1. The patient was plan to discharge home with antibiotics. The patient's management plan was discussed with my attending physician MD Nicholas Lim MD, PGY2 Patient data External records reviewed:: [facility] previous records Clinical information provided by:: patient Social determinants that could affect healthcare access:: none Patient has the following chronic illnesses:: See above How is presenting disease/condition affected by chronic disease/condition?: exacerbated by Evaluation data The following diagnostics were reviewed and interpreted by me:: lab results and radiology exam(s) Lab and/or radiology exams considered but not ordered:: None Interpretation Summary: See above Medications / Prescriptions Medications or Prescriptions considered but not ordered:: None Medication administrations:: Medication Administration History Discontinued Medications Amlodipine Besylate (Amlodipine Besylate 5 Mg Tablet) 10 mg PO X1 ONE Stop: 04/06/25 11:07 Last Admin: 04/06/25 11:29 Dose: Not Given Documented By: PAULETTE Non-Admin Reason: Cancelled by Provider Ceftriaxone Sodium/Dextrose (Rocephin/D5w 1gm Iv Premix) 1 gm in 50 mls @ 100 mls/hr IV X1 ONE Stop: 04/06/25 11:34 Last Infusion: 04/06/25 11:56 Dose: Infused Documented By: Admin: 04/06/25 11:27 Dose: 100 mls/hr Documented By: PAULETTE Lisinopril (Lisinopril 20 Mg Tablet) 20 mg PO X1 ONE Stop: 04/06/25 11:07 Last Admin: 04/06/25 11:30 Dose: Not Given Documented By: PAULETTE Non-Admin Reason: Cancelled by Provider Lisinopril (Lisinopril 20 Mg Tablet) 20 mg PO X1 ONE Stop: 04/06/25 11:47 Last Admin: 04/06/25 11:55 Dose: Not Given Documented By: PAULETTE Non-Admin Reason: Cancelled by Provider Lisinopril (Lisinopril 20 Mg Tablet) 40 mg PO X1 ONE Stop: 04/06/25 11:50 Last Admin: 04/06/25 11:53 Dose: 40 mg Documented By: SM See above Consultations Consultation(s) initiated? (list below): No Diagnosis Urogenital Female Differential Diagnosis: urinary tract infection, bacterial vaginosis, cystitis and other (Renal stones) Most likely diagnosis given after review of the tests above:: UTI Admission Indicated Admission indicated?: not indicated Admission Request Was there a request for admission?: No Disposition Plan Disposition Plan: Discharge Discharge Attestation Discharge Attestation: The patient and all family members were given an opportunity to ask questions and understood the discharge instructions. Discharge instructions specifically effects, indications for sooner follow up or return to the emergency department, and the expected course of current diagnosis. Patient condition: Stable Discharge Plan Plan Patient Disposition: HOME (Self Care) Prescriptions/Referrals Prescriptions/Med Rec: New doxycycline hyclate 100 mg tablet 100 mg PO BID Qty: 14 0RF acetaminophen 500 mg tablet 500 mg PO Q6H PRN (Reason: pain) Qty: 20 0RF No Action levothyroxine 50 mcg Tablet 50 mcg PO EVERYOTHERDAY lisinopril 40 mg Tablet 20 mg PO QDAY ezetimibe 10 mg Tablet 10 mg PO QDAY cholecalciferol (vitamin D3) [Vitamin D3] 25 mcg (1,000 unit) Tablet 25 mcg PO QDAY dicyclomine 10 mg capsule 10 mg PO TID PRN (Reason: abdominal pain) Qty: 20 0RF amoxicillin-pot clavulanate 875-125 mg tablet 1 tab PO Q12H Qty: 14 0RF ciprofloxacin HCl [Cipro] 500 mg tablet 500 mg PO BID Qty: 10 0RF metronidazole 500 mg tablet 500 mg PO BID Qty: 10 0RF dicyclomine 20 mg tablet 20 mg PO BID Qty: 14 0RF acetaminophen [Tylenol Extra Strength] 500 mg tablet 1,000 mg PO Q6H PRN (Reason: pain) Qty: 30 0RF dicyclomine 20 mg tablet 20 mg PO Q6HR PRN (Reason: abdominal pain) Qty: 30 0RF ciprofloxacin HCl [Cipro] 500 mg tablet 500 mg PO BID Qty: 20 0RF amoxicillin-pot clavulanate 875-125 mg tablet 1 tab PO BID Qty: 20 0RF hydrocodone-acetaminophen 5-325 mg tablet 1 tab PO Q6H MDD 4 PRN (Reason: pain) Qty: 14 0RF Referrals: Joleen Gibbs PA-C [Primary Care Provider] - In 1 week Problem List Clinical Impression: Urinary tract infection Patient/Caregiver Discharge Instructions Discharge Activity: activity as tolerated Education Materials: Urinary Tract Infections in Women, When to Use Antibiotics Additional Instructions: You have been discharged on following recommendations by Dr. Mix: Please follow-up with your PCP within 1 week of discharge, and request the report of your urine and blood culture. You have been started on: -Doxycycline 100 Mg twice daily for 7 days - Acetaminophen 500 Mg up to 4 times a day for pain -Recommended to drink at least 2 to 3 L of water per day. Continue taking all other medicines as prescribed -Recommended to return back to emergency department if your symptoms persists or worsens Print Language: Indonesian Stand Alone Forms: [employer] Info., Patient Portal Info Letter
[2025-04-06] MEDS: cefTRIAXone/D5w 1gm IV premix 1 GM/50 ML BAG IV (11:27)
[2025-04-06 11:53] VITALS: BP 190/89; PULSE 78
[2025-04-06] MEDS: Lisinopril 20 MG TABLET 40 MG PO (11:53)
[2025-04-06 12:11] VITALS: BP 158/77; PULSE 89; RESP 19; TEMP 36.6; O2SAT 95
[2025-04-06 12:32] VITALS: BP 158/77; PULSE 82; RESP 18; O2SAT 97
== END 2025-04-06 12:32 | disposition home or self-care (01) ==
PROVIDERS: Nurse Practitioner Family; Emergency Provider Emergency Medicine; PCP Physician Assistant
DX: N39.0 Urinary tract infection, site not specified (principal); N26.1 Atrophy of kidney (terminal); N28.89 Other specified disorders of kidney and ureter; K57.30 Diverticulosis of large intestine without perforation or abscess without bleeding
CPT/HCPCS: 36415; 74176; 80053; 81001; 83690; 85025; 87040; 87086; 96365; 99284; J0696; A9270

== ENCOUNTER → 2025-04-13 | Outpatient (CLI) | payer MEDICARE, BC, SELFPAY | END | disposition home or self-care (01) | LOC: SLDO 14:34 | PROVIDERS: PCP Physician Assistant; Referring Provider Physician Assistant; Visit Provider Physician Assistant | DX: N39.0 Urinary tract infection, site not specified (principal) | CPT/HCPCS: 87086 ==

== ENCOUNTER → 2025-04-15 | Outpatient (CLI) | payer MEDICARE, BC, SELFPAY ==
[2025-04-15 15:09] LABS: Collection Type, Urine Clean Catch
[2025-04-15 16:38] LABS: Bilirubin,Urine Negative (Negative); Blood,Urine Negative (Negative); Clarity,Urine Clear (Clear/Hazy); Color,Urine Yellow (Lt Yel-Yel); Glucose, Urine Negative (Negative); Ketones,Urine Trace (Negative); Leukocyte Esterase,Urine Negative (Negative); Nitrite,Urine Negative (Negative); PH,Urine 5.5 (5.0-7.0); Protein,Urine Trace (Neg - Trace); RBC,Urine 3 /hpf (0-3); Specific Gravity,Urine 1.031 (1.001-1.035); Squamous Epithelial Cell,Urine 2 /hpf (0-5); WBC,Urine 1 /hpf (0-5)
== END | disposition home or self-care (01) ==
LOC: SLDO 15:04
PROVIDERS: PCP Physician Assistant; Referring Provider Physician Assistant; Visit Provider Physician Assistant
DX: N39.0 Urinary tract infection, site not specified (principal)
CPT/HCPCS: 81001; 87086

== ENCOUNTER → 2025-04-19 | Outpatient (CLI) | payer MEDICARE, BC, SELFPAY ==
[2025-04-19 08:45] LABS: Blood Urea Nitrogen 21 mg/dL (9-23); Creatinine (Component) 1.1 mg/dL (0.6-1.3); eGFR 50 See Note
== END | disposition home or self-care (01) ==
LOC: COPL 06:43
PROVIDERS: PCP Physician Assistant; Referring Provider Surgery Vascular Surgery; Visit Provider Surgery Vascular Surgery
DX: I65.23 Occlusion and stenosis of bilateral carotid arteries (principal)
CPT/HCPCS: 36415; 82565; 84520

== ENCOUNTER → 2025-04-27 | Outpatient (CLI) | payer MEDICARE, BC, SELFPAY ==
--- NOTE | 2025-04-27 09:30 | XR_ITS ---
Examination: CTA carotids with intravenous contrast CTA brain, head with intravenous contrast. 2-D sagittal, coronal reconstructions. 3-D reconstructions. 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 2-D sagittal, coronal reconstructions. 3-D reconstructions, 3-D post processing including vascular maximum intensity projection images. Low dose protocols were performed. One or more of the following dose reduction techniques were used; automated exposure control, adjustment of the mA and/or KV according to patient size, use of iterative reconstruction technique. Findings: No significant stenosis left common carotid artery left carotid bifurcation or left internal carotid artery. 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
== END | disposition home or self-care (01) ==
LOC: CCTX 09:01
PROVIDERS: PCP Physician Assistant; Referring Provider Surgery Vascular Surgery; Visit Provider Surgery Vascular Surgery
DX: I65.21 Occlusion and stenosis of right carotid artery (principal)
CPT/HCPCS: 70498; A4649; Q9967

== ENCOUNTER 2025-04-30 11:21 | Emergency (ER) | payer MEDICARE, BC, SELFPAY ==
[2025-04-30 11:39] VITALS: BP 164/72; PULSE 94; RESP 16; TEMP 36.6; O2SAT 95; BMI 32.4
--- NOTE | 2025-04-30 12:24 | PD.EDRME ---
Rapid Medical Screening Exam RME Arrival date/time: 04/30/25 11:21 This is a 84-year-old female with history of recurrent UTI, hypertension, hypothyroidism, diabetes mellitus type 2 and diverticulitis presented to ED with chief complaint of right flank pain and lower abdominal pain patient states that she was seen here about 4 weeks ago with a similar complaints and was diagnosed with a UTI. Patient states that her symptoms got better after that episode but never went away completely.. Patient denies any fever or chills. Patient reports some diarrhea. Patient also complains of some urinary frequency and urgency but denies any dysuria. I have greeted and performed a focused initial assessment of this patient. Initial appropriate labs ordered at this time. A comprehensive ED assessment and evaluation of the patient and analysis of all test and completion of medical decision making process will be conducted by additional ED provider. Chief Complaint: Back Pain/Injury Time Seen by Provider: 04/30/25 12:01 Vital signs: Vital Signs Temperature 97.9 F 04/30/25 11:39 Pulse Rate 94 04/30/25 11:39 Respiratory Rate 16 04/30/25 11:39 Blood Pressure 164/72 H 04/30/25 11:39 Pulse Oximetry (%) 95 04/30/25 11:39 Oxygen Delivery Method Room Air 04/30/25 11:39
[2025-04-30 13:34] LABS: Collection Type, Urine Voided
[2025-04-30 13:45] LABS: Alanine Aminotransferase 13 U/L (10-49); Albumin, Serum 4.3 gm/dL (3.4-4.8); Albumin/Globulin Ratio 1.4 (1.2-2.2); Alkaline Phosphatase 74 U/L (46-116); Anion Gap 9 (7-16); Aspartate Amino Transferase 18 U/L (0-34); BUN/Creatinine Ratio 19 Ratio (12-20); Bilirubin,Total 0.4 mg/dL (0.3-1.2); Blood Urea Nitrogen 23 mg/dL (9-23); Calcium 9.3 mg/dL (8.3-10.6); Calcium (Corrected) 9.3 mg/dL (8.5-10.1); Carbon Dioxide 26.9 mMol/L (20.0-31.0); Chloride 103 mMol/L (98-107); Creatinine (Component) 1.2 mg/dL (0.6-1.3); Estimated Creatinine Clearance 36.2 mL/min (>60); Glucose 176 mg/dL (74-106); Lipase 42 U/L (12-53); Osmolality,Calculated 285 (275-295); Potassium 4.8 mMol/L (3.4-5.1); Sodium 139 mMol/L (136-145); Total Protein 7.3 gm/dL (5.7-8.2); eGFR 45 See Note
[2025-04-30 14:00] LABS: Bacteria,Urine Rare; Bilirubin,Urine Negative (Negative); Blood,Urine Negative (Negative); Clarity,Urine Clear (Clear/Hazy); Color,Urine Lt-Yellow (Lt Yel-Yel); Glucose, Urine Negative (Negative); Ketones,Urine Negative (Negative); Leukocyte Esterase,Urine Negative (Negative); Nitrite,Urine Negative (Negative); PH,Urine 6.5 (5.0-7.0); Protein,Urine Negative (Neg - Trace); RBC,Urine 1 /hpf (0-3); Specific Gravity,Urine 1.011 (1.001-1.035); Squamous Epithelial Cell,Urine 2 /hpf (0-5); Urobilinogen,Urine Negative mg/dL (0.0-1.0); WBC,Urine 2 /hpf (0-5)
[2025-04-30 15:01] LABS: Basophils # (Auto) 0.1 Thou/mm3 (0.0-0.2); Basophils % (Auto) 1 % (0-2.5); Eosinophils % (Auto) 0 % (0-10); Hematocrit 37.7 % (36.0-46.0); Hemoglobin 12.7 g/dL (12.0-16.0); Immature Granulocytes % (Auto) 1 % (0-0); Immature Granulocytes Auto 0.11 Thou/mm3 (0.00-0.00); Lymphocytes # (Auto) 1.8 Thou/mm3 (1.0-4.8); Lymphocytes % (Auto) 12 % (10-50); Mean Corpuscular HGB Conc 33.7 g/dl (31.0-37.0); Mean Corpuscular Hemoglobin 29.5 pg (25.0-35.0); Mean Corpuscular Volume 88 fL (80-100); Monocytes # (Auto) 0.4 Thou/mm3 (0.0-0.8); Monocytes % (Auto) 3 % (0-12); Neutrophils # (Auto) 12.9 Thou/mm3 (1.8-7.7); Neutrophils % (Auto) 84 % (37-80); Nucleated Red Blood Cell % 0 /100 WBC (0); RDW Standard Deviation 47.1 fL (36.4-46.3); White Blood Count 15.2 Thou/mm3 (3.6-11.0)
[2025-04-30 15:09] LABS: Platelet Count 310 Thou/mm3 (140-440)
--- NOTE | 2025-04-30 16:10 | PD.EDADULT ---
ED General RME/HPI General Chief complaint: Back Pain/Injury Stated complaint: Back pain radiating to right abdomen Time Seen by Provider: 04/30/25 12:01 Arrival date/time: 04/30/25 11:21 RME / HPI RME / HPI narrative: 04/30/25 11:21 This is a 84-year-old female with history of recurrent UTI, hypertension, hypothyroidism, diabetes mellitus type 2 and diverticulitis presented to ED with chief complaint of right flank pain and lower abdominal pain patient states that she was seen here about 4 weeks ago with a similar complaints and was diagnosed with a UTI. Patient states that her symptoms got better after that episode but never went away completely.. Patient denies any fever or chills. Patient reports some diarrhea. Patient also complains of some urinary frequency and urgency but denies any dysuria. I have greeted and performed a focused initial assessment of this patient. Initial appropriate labs ordered at this time. A comprehensive ED assessment and evaluation of the patient and analysis of all test and completion of medical decision making process will be conducted by additional ED provider. DR. ENGLE MAIN ED EVALUATION: 84 year old female presents to the Emergency Department with complaint of right-sided abdominal pain, pain starts on the right lower abdomen and moves up to the right upper abdomen. She states she had similar pain 4 weeks ago and was seen here; at that time they told her she probably passed a kidney stone and she had an UTI. Patient states that she has a chronic cough but nothing more than her usual from bronchitis. No congestion, fevers, chills, recent sickness, or other symptoms at this time. PMHx: Bronchitis, recurrent UTI's, hypertension, hypothyroidism, diabetes mellitus type 2, and diverticulitis. Social Hx: No tobacco, alcohol, or substance use. Related Data Home Medications ?Medication ?Instructions ?Recorded ?Confirmed levothyroxine 50 mcg tablet 50 mcg PO EVERYOTHERDAY 06/29/18 09/16/22 ezetimibe 10 mg tablet 10 mg PO QDAY 03/12/21 09/16/22 lisinopril 40 mg tablet 20 mg PO QDAY 03/12/21 09/16/22 cholecalciferol (vitamin D3) 25 25 mcg PO QDAY 09/16/22 09/16/22 mcg (1,000 unit) tablet (Vitamin D3) Previous Rx's ?Medication ?Instructions ?Recorded ciprofloxacin HCl 500 mg tablet 500 mg PO BID #20 tabs 09/18/23 (Cipro) amoxicillin 875 mg-potassium 1 tab PO BID #20 tabs 10/01/23 clavulanate 125 mg tablet amoxicillin 875 mg-potassium 1 tab PO Q12H #14 tabs 11/23/23 clavulanate 125 mg tablet dicyclomine 10 mg capsule 10 mg PO TID PRN abdominal pain 11/23/23 #20 caps ciprofloxacin HCl 500 mg tablet 500 mg PO BID #10 tabs 02/17/24 (Cipro) dicyclomine 20 mg tablet 20 mg PO BID #14 tabs 02/17/24 metronidazole 500 mg tablet 500 mg PO BID #10 tabs 02/17/24 hydrocodone 5 mg-acetaminophen 325 1 tab PO Q6H PRN pain #14 tabs 06/13/24 mg tablet acetaminophen 500 mg tablet 1,000 mg (2 x 500 mg) PO Q6H PRN 10/24/24 (Tylenol Extra Strength) pain #30 tabs dicyclomine 20 mg tablet 20 mg PO Q6HR PRN abdominal pain 10/24/24 #30 tabs acetaminophen 500 mg tablet 500 mg PO Q6H PRN pain #20 tabs 04/06/25 doxycycline hyclate 100 mg tablet 100 mg PO BID #14 tabs 04/06/25 Allergies Allergy/AdvReac Type Severity Reaction Status Date / Time Sulfa (Sulfonamide Allergy Severe Swelling Verified 04/30/25 11:27 Antibiotics) of Lip/Tongue/Throat Review of Systems Review of Systems Systems Reviewed: All systems reviewed, normal except as documented Narrative Review of Systems: Constitutional: DENIES: fevers; Eyes: DENIES: loss of vision; Head/Ear/Nose: DENIES: loss of hearing. Throat: DENIES: dysphagia. Cardiovascular: DENIES: chest pain, dyspnea, or syncope. Respiratory: POSITIVES: chronic cough but nothing more than her usual from bronchitis DENIES: shortness of breath; Gastrointestinal: POSITIVES: right-sided abdominal pain (see HPI) DENIES: rectal bleeding or melena. Genitourinary: DENIES: dysuria (painful or difficult urination); Musculoskeletal: DENIES: arthralgia (pain in a joint); Skin: DENIES: rash; Neurological: DENIES: loss of function or movement; Psychiatric: DENIES: recent major life stressor, emotional problem, illicit drug use or abuse; Endocrinology: DENIES: weight change,; Hematologic/Lymphatic: DENIES: abnormal bruising. Allergic/Immunologic: DENIES: urticaria (hives). Past Medical History Past Medical History CARDIAC: Positive Cardiac Disorders, Hypercholesterolemia and Hypertension RESPIRATORY: Positive Asthma and Bronchitis GASTROINTESTINAL: Positive Gastrointestinal Disorders, Diverticulitis and Obesity GENITOURINARY: Positive Renal Disease and Kidney Stones REPRODUCTIVE: Positive Previous Pregnancies MUSCULOSKELETAL: Positive Musculoskeletal Disorders and Arthritis ENT: Positive Glaucoma ENDOCRINE: Positive Endocrine Disorders, Diabetes Mellitus Type 2 and Hypothyroidism HEMATOLOGIC: Positive Blood Disorders Surgical History SURGICAL: Positive Vascular Surgery, Arthroscopy and Hysterectomy Social History SMOKING STATUS: Never smoker SUBSTANCE USE: does not use ALCOHOL: Never ED Exam Narrative Physical exam: Physical Exam: General: The vital signs were reviewed. The patient is non-toxic, in no apparent distress and appears healthy with a patent airway, no respiratory distress and has no apparent circulatory problems. Head & Scalp: Normocephalic, atraumatic. Face: Appears normal and is without lesions, deformity. Ears: Left external pinna appears normal. Right external pinna appears normal. Eyes: The sclera is anicteric. No obvious photophobia. The Left and Right Orbit/Lid/Conjunctiva appears normal without swelling, discoloration or injection. Nose: The nose is without deformity, discharge or tenderness; Throat: Appears normal. The mucous membranes are pink and moist without exudates, redness or mass seen. The tongue appears normal. Neck: The neck is supple and no apparent mass or adenopathy. Chest: The chest wall is normal in size and symmetry and has no chest wall tenderness or crepitus. The patient displays normal ventilator effort without retractions, accessory muscle use and has adequate air movement bilaterally with no wheezes and no rales. Cardiovascular: Regular rate and rhythm; No murmurs, rubs, or gallops; Gastrointestinal: The abdomen appears normal. No obvious hernias or mass. The abdomen is soft and benign, non-distended, with no pain, no guarding and no rebound tenderness. Bowel sounds are present and normal sounding. No CVA tenderness. Genitourinary: Back/Spine: Normal inspection there is no rash seen. She points to her right flank and has no obvious tenderness on palpation when you lift up on her panniculus there is some pain. Again there is no rash. Extremities/Musculoskeletal/lymphatic: The bilateral upper and lower extremities are warm. There is no evidence of arterial insufficiency. There is no evidence of venous insufficiency/edema. The patient spontaneously moves bilateral upper and lower extremities with no pain and no limitation of movement. There is no apparent, injury or trauma. Skin: The skin is warm, dry and intact. No rashes. No petechia. No purpura. No abnormal bruising. The color is appropriate with no cyanosis. Mental status/Psychiatric: Mental status is appropriate for age. The patient has no apparent delusions, visual hallucinations, no apparent audible hallucinations. The patient has no apparent suicidal thoughts/ideation and no apparent homicidal thoughts/ideation. Neurological: The patient is awake, alert, interactive, cordial, cooperative and is oriented to name and situation. The patient follows commands and answers historical question with no impairment. There is no visual disturbance apparent. The pupils are equal and reactive bilaterally with normal eye movements and no diplopia The bilateral upper and lower extremities have normal strength, normal range of motion and normal functioning. The gait, station and balance appear to be baseline with no acute change Course Quality Measures none Orders Category Date Time Status CT abdomen pelvis wo con Stat Exams 04/30/25 16:18 Taken CBC Stat Lab 04/30/25 14:35 Completed Comprehensive Metabolic Panel Stat Lab 04/30/25 12:59 Completed Lipase Stat Lab 04/30/25 12:59 Completed Urinalysis Stat Lab 04/30/25 13:25 Completed Urine Culture Stat Lab 04/30/25 13:25 Received Sodium Chloride 0.9% 500 ml [Ns] 500 ml Med 04/30/25 16:19 Discontinued IV 999 mls/hr Vital Signs Vital signs: Vital Signs Temperature 97.9 F 04/30/25 11:39 Pulse Rate 94 04/30/25 11:39 Respiratory Rate 16 04/30/25 11:39 Blood Pressure 164/72 H 04/30/25 11:39 Pulse Oximetry (%) 95 04/30/25 11:39 Oxygen Delivery Method Room Air 04/30/25 11:39 Discharge Plan Plan Patient Disposition: HOME (Self Care) Prescriptions/Referrals Prescriptions/Med Rec: No Action levothyroxine 50 mcg Tablet 50 mcg PO EVERYOTHERDAY lisinopril 40 mg Tablet 20 mg PO QDAY ezetimibe 10 mg Tablet 10 mg PO QDAY cholecalciferol (vitamin D3) [Vitamin D3] 25 mcg (1,000 unit) Tablet 25 mcg PO QDAY dicyclomine 10 mg capsule 10 mg PO TID PRN (Reason: abdominal pain) Qty: 20 0RF amoxicillin-pot clavulanate 875-125 mg tablet 1 tab PO Q12H Qty: 14 0RF ciprofloxacin HCl [Cipro] 500 mg tablet 500 mg PO BID Qty: 10 0RF metronidazole 500 mg tablet 500 mg PO BID Qty: 10 0RF dicyclomine 20 mg tablet 20 mg PO BID Qty: 14 0RF acetaminophen [Tylenol Extra Strength] 500 mg tablet 1,000 mg PO Q6H PRN (Reason: pain) Qty: 30 0RF dicyclomine 20 mg tablet 20 mg PO Q6HR PRN (Reason: abdominal pain) Qty: 30 0RF doxycycline hyclate 100 mg tablet 100 mg PO BID Qty: 14 0RF acetaminophen 500 mg tablet 500 mg PO Q6H PRN (Reason: pain) Qty: 20 0RF ciprofloxacin HCl [Cipro] 500 mg tablet 500 mg PO BID Qty: 20 0RF amoxicillin-pot clavulanate 875-125 mg tablet 1 tab PO BID Qty: 20 0RF hydrocodone-acetaminophen 5-325 mg tablet 1 tab PO Q6H MDD 4 PRN (Reason: pain) Qty: 14 0RF Referrals: Joleen Gibbs PA-C [Primary Care Provider] - In 1 week Problem List Clinical Impression: Right sided abdominal pain, Atrophy of right kidney Patient/Caregiver Discharge Instructions Education Materials: Abdominal Pain Additional Instructions: As we discussed again you present with right-sided discomfort that cannot be explained by her labs and CT there is no evidence of infection. Your urine is totally clear. Your CT scan confirms the atrophic right kidney and issues loom whether you could have a stricture of the ureter with intermittent dilation of the kidney that releases. Please follow-up with your doctor and/or Dr Plata your dye operator to review your workup today and your CAT scans and get referred to urologist if needed. As we discussed if getting worse your pain is out of control please return for reevaluation. Print Language: Singaporean Stand Alone Forms: [employer] Info., Patient Portal Info Letter MDM Narrative MDM hospital course: Patient returns with a similar bout of pain in the right flank right lateral lower quadrant area which she describes as burning but nothing is objectively present her urine is negative there is no hematuria does not appear is a kidney stone going on. Consideration for early shingles is possible but she had a similar symptoms 4 weeks ago and no rash occurred then. It is unclear what is going on but her white cell count is elevated at 15.2 otherwise the remaining CBC is normal CHEM panel is essentially unremarkable. Will give her some fluids get a CAT scan and reevaluate. Note the UA was totally unremarkable today. Unclear what is causing her pain CT report reveals>>>>>>>>> is similar to the previous one and I reviewed this with the radiologist Dr. Crook where there is scarring of the right kidney there is minimal dilation on today's CT of the pelvis of the kidney no stone is seen. There is no abscess seen there is no stranding. This was a noncontrast CT as patient was concerned about having a stone. Clinically her abdomen is soft and benign. I had a long discussion with the patient to follow-up with her dye operator Dr Plata and maybe get referred to urologist to evaluate for possible stricture or other etiology for intermittent pain related to the abnormal kidney on the right. I realize this may have nothing to do with anything and this could easily be a muscle spasm or strain as she says is very superficial and feels like it is a pressure tightness. She has no shortness of breath her belly soft benign at the time of discharge she knows return if getting worse. Margaret Webb, am scribing for and in the presence of Dr. Engle. Clinical Information Provided by patient Medical Records Reviewed [facility] Meds/Rx Considered, not Ordered None Labs/Rad/Tests considered, not Ordered None Chronic Illness/Social Conditions Add or document further as needed: Bronchitis, recurrent UTI's, hypertension, hypothyroidism, diabetes mellitus type 2, and diverticulitis. EKG EKG not done Lab Interpretation Labs: see narrative above Imaging Imaging interpretation: see narrative above Medication Administration(s) Medication Administration History Discontinued Medications Sodium Chloride (Ns) 500 mls @ 999 mls/hr IV .Q31M ONE Stop: 04/30/25 16:49 Diagnosis Differential diagnosis: kidney stones, UTI, diverticulitis Most likely dx, and/or detailed dx discussion: Unexplained right lateral abdominal pain CT again shows atrophic right kidney and questionable dilation of the right pelvis with no abscess or other explanation. This looks pretty chronic for the radiologist. Dispositon Disposition: Discharge Home Disposition comments: Patient advised and knows return if getting worse follow-up with the doctor get referred to urology.
[2025-04-30 16:13] VITALS: BP 190/95; PULSE 71; RESP 18; TEMP 36.9; O2SAT 99
--- NOTE | 2025-04-30 16:15 | PC.NURSE ---
IN TO ASSESS PT, PT FROM HOME WITH C/O RIGHT SIDED ABD/BACK PAIN X4 WEEKS. PT WITHOUT FURTHER COMPLAINTS AT THIS TIME. PROVIDER AT BEDSIDE TO ASSESS. ORDERS RECEIVED AND INITIATED. CALL LIGHT PLACED WITHIN REACH. PLAN OF CARE ONGOING.
--- NOTE | 2025-04-30 16:18 | XR_ITS ---
Examination: CT abdomen and pelvis without contrast. Coronal 3-D reconstructions. Sagittal 2-D reconstructions. Date and time of exam:April 30, 2025 1630 hours Comparison April 06, 2025 INDICATIONS: Right-sided abdominal pain 1 month CTDI: vol (mGy): 11 DLP: (mGycm): 564 Technique: Axial images of the abdomen have been obtained, 3 mm slice thickness Intravenous contrast material has not been administered. Low dose protocols were performed. One or more of the following dose reduction techniques were used; automated exposure control, adjustment of the mA and/or KV according to patient size, use of iterative reconstruction technique. Findings: Mild enlargement left atrium and left ventricle No focal liver lesions The gallbladder is contracted Spleen is not enlarged No pancreatic mass, no adrenal mass Atrophic right kidney with significant scarring Minimal dilatation of the right renal calyces and pelvis No renal or ureteral calculi, no hydronephrosis Abdominal aortic calcification no aneurysmal dilatation Normal appendix Colonic diverticulosis, no diverticulitis Absent uterus No pelvic mass Urinary bladder intact Prominent osteopenia Advanced degenerative disc disease L5-S1 IMPRESSION: Atrophic right kidney with significant right renal scarring Minimal dilatation of the right renal calyces and pelvis, consider right urinary tract infection Normal appendix No bowel obstruction diverticulitis or free air
--- NOTE | 2025-04-30 16:20 | PC.NURSE ---
PT TAKEN TO CT.
[2025-04-30 17:15] VITALS: BP 173/93; PULSE 84; RESP 18; TEMP 36.9; O2SAT 98
== END 2025-04-30 18:12 | disposition home or self-care (01) ==
PROVIDERS: Nurse Practitioner Family; Emergency Provider Emergency Medicine; PCP Physician Assistant
DX: N26.1 Atrophy of kidney (terminal) (principal)
CPT/HCPCS: 36415; 74176; 80053; 81001; 83690; 85025; 87086; 99284

== ENCOUNTER 2025-05-10 06:57 | Emergency (ER) | payer MEDICARE, BC, SELFPAY ==
[2025-05-10 06:57] VITALS: BP 156/71; PULSE 89; RESP 17; TEMP 36.8; O2SAT 96
[2025-05-10 07:28] VITALS: PULSE 91; O2SAT 97; BMI 32.2
--- NOTE | 2025-05-10 07:43 | XR_ITS ---
Examination: CT abdomen and pelvis without contrast. Coronal 3-D reconstructions. Sagittal 2-D reconstructions. Date and time of exam:May 10, 2025 at 0835 hours Comparison April 30, 2025 INDICATIONS: Left-sided flank pain and nausea beginning today CTDI: vol (mGy): 9.58 DLP: (mGycm): 556 Technique: Axial images of the abdomen have been obtained, 3 mm slice thickness Intravenous contrast material has not been administered. Low dose protocols were performed. One or more of the following dose reduction techniques were used; automated exposure control, adjustment of the mA and/or KV according to patient size, use of iterative reconstruction technique. Findings: No focal liver or splenic lesions No gallstones Pancreatic calcifications Atrophic right kidney Moderate renal parenchymal scar formation No renal or ureteral calculi Abdominal aortic calcification Colonic diverticulosis 15 mm fat-containing umbilical hernia Normal appendix Colonic diverticulosis, no diverticulitis Contracted urinary bladder. Absent uterus Severe osteopenia Advanced disc narrowing L5-S1 IMPRESSION: Atrophic right kidney Moderate bilateral renal parenchymal scar formation. No renal or ureteral calculi, no hydronephrosis Normal appendix Colonic diverticulosis, no diverticulitis No bladder mass or bladder calculi
--- NOTE | 2025-05-10 07:44 | PD.EDRME ---
Rapid Medical Screening Exam RME Arrival date/time: 05/10/25 06:57 84-year-old female with a history of hypertension, hypothyroidism presents to the emergency room with a chief complaint of right-sided flank pain, dysuria x 3 days. I have greeted and performed a focused initial assessment of this patient. A comprehensive ED assessment and evaluation of the patient, analysis of all test results, and completion of the medical decision making process will be conducted by additional ED providers. Vital signs: Vital Signs Temperature 98.2 F 05/10/25 06:57 Pulse Rate 89 05/10/25 06:57 Respiratory Rate 17 05/10/25 06:57 Blood Pressure 156/71 H 05/10/25 06:57 Pulse Oximetry (%) 96 05/10/25 06:57 Oxygen Delivery Method Room Air 05/10/25 06:57 Vital signs reviewed by provider: Yes
[2025-05-10 08:19] LABS: Basophils # (Auto) 0.1 Thou/mm3 (0.0-0.2); Basophils % (Auto) 1 % (0-2.5); Eosinophils # (Auto) 0.4 Thou/mm3 (0.0-0.5); Eosinophils % (Auto) 5 % (0-10); Lymphocytes # (Auto) 1.8 Thou/mm3 (1.0-4.8); Monocytes # (Auto) 0.6 Thou/mm3 (0.0-0.8); Neutrophils % (Auto) 67 % (37-80); Nucleated Red Blood Cell # 0.00 Thou/mm3 (0.00-0.00); Nucleated Red Blood Cell % 0 /100 WBC (0)
[2025-05-10 08:20] LABS: Hematocrit 36.9 % (36.0-46.0); Hemoglobin 12.2 g/dL (12.0-16.0); Immature Granulocytes Auto 0.03 Thou/mm3 (0.00-0.00); Lymphocytes % (Auto) 20 % (10-50); Mean Corpuscular HGB Conc 33.1 g/dl (31.0-37.0); Mean Corpuscular Hemoglobin 29.6 pg (25.0-35.0); Mean Corpuscular Volume 90 fL (80-100); Monocytes % (Auto) 7 % (0-12); Neutrophils # (Auto) 5.9 Thou/mm3 (1.8-7.7); RDW Standard Deviation 49.0 fL (36.4-46.3); Red Blood Count 4.12 Miln/mm3 (4.00-5.20); White Blood Count 8.9 Thou/mm3 (3.6-11.0)
[2025-05-10 08:37] LABS: Alanine Aminotransferase 11 U/L (10-49); Albumin, Serum 4.2 gm/dL (3.4-4.8); Albumin/Globulin Ratio 1.4 (1.2-2.2); Alkaline Phosphatase 80 U/L (46-116); Anion Gap 6 (7-16); Aspartate Amino Transferase 19 U/L (0-34); BUN/Creatinine Ratio 15 Ratio (12-20); Bilirubin,Total 0.6 mg/dL (0.3-1.2); Blood Urea Nitrogen 17 mg/dL (9-23); Calcium 9.3 mg/dL (8.3-10.6); Calcium (Corrected) 9.3 mg/dL (8.5-10.1); Carbon Dioxide 26.2 mMol/L (20.0-31.0); Chloride 109 mMol/L (98-107); Creatinine (Component) 1.1 mg/dL (0.6-1.3); Estimated Creatinine Clearance 39.4 mL/min (>60); Globulin 3.1 gm/dL (2.3-3.5); Glucose 147 mg/dL (74-106); Lipase 40 U/L (12-53); Osmolality,Calculated 285 (275-295); Potassium 4.4 mMol/L (3.4-5.1); Sodium 141 mMol/L (136-145); Total Protein 7.3 gm/dL (5.7-8.2); eGFR 50 See Note
[2025-05-10 08:47] LABS: Collection Type, Urine Clean Catch
[2025-05-10 08:51] LABS: Bilirubin,Urine Negative (Negative); Blood,Urine Negative (Negative); Clarity,Urine Clear (Clear/Hazy); Color,Urine Lt-Yellow (Lt Yel-Yel); Glucose, Urine Negative (Negative); Ketones,Urine Negative (Negative); Leukocyte Esterase,Urine Negative (Negative); Nitrite,Urine Negative (Negative); PH,Urine 6.5 (5.0-7.0); Protein,Urine Trace (Neg - Trace); RBC,Urine 5 /hpf (0-3); Specific Gravity,Urine 1.019 (1.001-1.035); Squamous Epithelial Cell,Urine 1 /hpf (0-5); Urobilinogen,Urine Negative mg/dL (0.0-1.0); WBC,Urine 4 /hpf (0-5)
[2025-05-10 09:27] LABS: Platelet Count 224 Thou/mm3 (140-440)
[2025-05-10 14:29] VITALS: BP 176/79; PULSE 72; RESP 18; TEMP 36.7; O2SAT 97
--- NOTE | 2025-05-10 14:49 | PD.EDADULT ---
ED General RME/HPI General Stated complaint: KIDNEY PAIN Time Seen by Provider: 05/10/25 15:33 Arrival date/time: 05/10/25 06:57 84-year-old female presents to the ED for her third visit for right flank pain and right CVA pain for the past 6 to 7 weeks. The pain is exacerbated by nothing and improved with urination. There is no association with food. Her appetite is good. She states she feels pressure and a balloon type feeling. She has had dysuria for the past 3 days. She was seen by her primary care physician and does not have an appointment with a grinder machine setter until June. She is becoming increasingly concerned due to the ongoing pain. She denies any fever or chills, nausea or vomiting, diarrhea or constipation. She has no pain with bowel movements. RME / HPI RME / HPI narrative: 05/10/25 06:57 84-year-old female with a history of hypertension, hypothyroidism presents to the emergency room with a chief complaint of right-sided flank pain, dysuria x 3 days. I have greeted and performed a focused initial assessment of this patient. A comprehensive ED assessment and evaluation of the patient, analysis of all test results, and completion of the medical decision making process will be conducted by additional ED providers. Related Data Home Medications ?Medication ?Instructions ?Recorded ?Confirmed levothyroxine 50 mcg tablet 50 mcg PO EVERYOTHERDAY 06/29/18 09/16/22 ezetimibe 10 mg tablet 10 mg PO QDAY 03/12/21 09/16/22 lisinopril 40 mg tablet 20 mg PO QDAY 03/12/21 09/16/22 cholecalciferol (vitamin D3) 25 25 mcg PO QDAY 09/16/22 09/16/22 mcg (1,000 unit) tablet (Vitamin D3) Previous Rx's ?Medication ?Instructions ?Recorded ciprofloxacin HCl 500 mg tablet 500 mg PO BID #20 tabs 09/18/23 (Cipro) amoxicillin 875 mg-potassium 1 tab PO BID #20 tabs 10/01/23 clavulanate 125 mg tablet amoxicillin 875 mg-potassium 1 tab PO Q12H #14 tabs 11/23/23 clavulanate 125 mg tablet dicyclomine 10 mg capsule 10 mg PO TID PRN abdominal pain 11/23/23 #20 caps ciprofloxacin HCl 500 mg tablet 500 mg PO BID #10 tabs 02/17/24 (Cipro) dicyclomine 20 mg tablet 20 mg PO BID #14 tabs 02/17/24 metronidazole 500 mg tablet 500 mg PO BID #10 tabs 02/17/24 hydrocodone 5 mg-acetaminophen 325 1 tab PO Q6H PRN pain #14 tabs 06/13/24 mg tablet acetaminophen 500 mg tablet 1,000 mg (2 x 500 mg) PO Q6H PRN 10/24/24 (Tylenol Extra Strength) pain #30 tabs dicyclomine 20 mg tablet 20 mg PO Q6HR PRN abdominal pain 10/24/24 #30 tabs acetaminophen 500 mg tablet 500 mg PO Q6H PRN pain #20 tabs 04/06/25 doxycycline hyclate 100 mg tablet 100 mg PO BID #14 tabs 04/06/25 Allergies Allergy/AdvReac Type Severity Reaction Status Date / Time Sulfa (Sulfonamide Allergy Severe Swelling Verified 05/10/25 07:28 Antibiotics) of Lip/Tongue/Throat Review of Systems Review of Systems Systems Reviewed: All systems reviewed, normal except as documented Past Medical History Past Medical History NEUROLOGIC: Negative Neurological Disorders or Seizures CARDIAC: Positive Cardiac Disorders, Hypercholesterolemia and Hypertension; Negative Congestive Heart Failure RESPIRATORY: Positive Asthma and Bronchitis; Negative Chronic Obstructive Pulmonary Disease (COPD) GASTROINTESTINAL: Positive Gastrointestinal Disorders, Diverticulitis and Obesity GENITOURINARY: Positive Renal Disease and Kidney Stones; Negative Genitourinary Disorders REPRODUCTIVE: Positive Previous Pregnancies MUSCULOSKELETAL: Positive Musculoskeletal Disorders and Arthritis ENT: Positive Glaucoma ENDOCRINE: Positive Endocrine Disorders, Diabetes Mellitus Type 2 and Hypothyroidism; Negative Diabetes Mellitus Type 1 HEMATOLOGIC: Positive Blood Disorders; Negative Sickle Cell Disease OTHER HISTORY: Negative Autoimmune Disease, Blood Transfusions, Anesthesia Reactions or Cancer Surgical History SURGICAL: Positive Vascular Surgery, Arthroscopy and Hysterectomy Social History SMOKING STATUS: Never smoker SUBSTANCE USE: does not use ED Exam Narrative Physical exam: Alert and oriented, afebrile, nontoxic-appearing 84-year-old female, sitting a wheelchair, no acute distress. Vital signs are normal with the exception of a blood pressure of 156/71. Lungs are clear, cardiovascular regular rate and rhythm without murmurs. Right-sided CVA tenderness noted. Bowel sounds are present, abdomen is soft with right upper quadrant abdominal tenderness to palpation. Positive Singh sign. No rebound or guarding. Course Course Course Narrative: CBC is normal, chemistry panel reveals a minimally elevated chloride of 109 with normal potassium, BUN and creatinine. Glucose was elevated at 147. LFTs and lipase are normal. Urinalysis reveals clear light yellow urine with a specific gravity of 1.019 with negative ketones, nitrate, leukocyte Estrace, or bacteria. There is 5 RBCs noted. This urinalysis is similar to the previous 5-6 urinalysis obtained since 04/06/2025. IMPRESSION: Atrophic right kidney. Moderate bilateral renal parenchymal scar formation. No renal or ureteral calculi, no hydronephrosis. Normal appendix. Colonic diverticulosis, no diverticulitis. No bladder mass or bladder calculi. This CT of the abdomen and pelvis is also similar to the previous two CTs obtained since 04/06/25. Quality Measures none Orders Category Date Time Status CT abdomen pelvis wo con Stat Exams 05/10/25 07:43 Completed US abdomen limited Stat Exams 05/10/25 15:05 Completed US renal BI Stat Exams 05/10/25 15:05 Completed CBC Stat Lab 05/10/25 07:48 Completed CMP [Comprehensive Metabolic Panel] Stat Lab 05/10/25 07:48 Completed Lipase Stat Lab 05/10/25 07:48 Completed UA [Urinalysis] Stat Lab 05/10/25 08:38 Completed Urine Culture Stat Lab 05/10/25 08:38 Received Ketorolac Inj [Toradol Inj] Med 05/10/25 07:43 Discontinued 30 mg IM X1 ONE Vital Signs Vital signs: Vital Signs Temperature 98.2 F 05/10/25 06:57 Pulse Rate 89 05/10/25 06:57 Respiratory Rate 17 05/10/25 06:57 Blood Pressure 156/71 H 05/10/25 06:57 Pulse Oximetry (%) 96 05/10/25 06:57 Oxygen Delivery Method Room Air 05/10/25 06:57 Discharge Plan Plan Patient Disposition: HOME (Self Care) Discharge Disposition comment: Stable Prescriptions/Referrals Prescriptions/Med Rec: No Action levothyroxine 50 mcg Tablet 50 mcg PO EVERYOTHERDAY lisinopril 40 mg Tablet 20 mg PO QDAY ezetimibe 10 mg Tablet 10 mg PO QDAY cholecalciferol (vitamin D3) [Vitamin D3] 25 mcg (1,000 unit) Tablet 25 mcg PO QDAY dicyclomine 10 mg capsule 10 mg PO TID PRN (Reason: abdominal pain) Qty: 20 0RF amoxicillin-pot clavulanate 875-125 mg tablet 1 tab PO Q12H Qty: 14 0RF ciprofloxacin HCl [Cipro] 500 mg tablet 500 mg PO BID Qty: 10 0RF metronidazole 500 mg tablet 500 mg PO BID Qty: 10 0RF dicyclomine 20 mg tablet 20 mg PO BID Qty: 14 0RF acetaminophen [Tylenol Extra Strength] 500 mg tablet 1,000 mg PO Q6H PRN (Reason: pain) Qty: 30 0RF dicyclomine 20 mg tablet 20 mg PO Q6HR PRN (Reason: abdominal pain) Qty: 30 0RF doxycycline hyclate 100 mg tablet 100 mg PO BID Qty: 14 0RF acetaminophen 500 mg tablet 500 mg PO Q6H PRN (Reason: pain) Qty: 20 0RF ciprofloxacin HCl [Cipro] 500 mg tablet 500 mg PO BID Qty: 20 0RF amoxicillin-pot clavulanate 875-125 mg tablet 1 tab PO BID Qty: 20 0RF hydrocodone-acetaminophen 5-325 mg tablet 1 tab PO Q6H MDD 4 PRN (Reason: pain) Qty: 14 0RF Referrals: Joleen Gibbs PA-C [Primary Care Provider] - In 1 week Problem List Clinical Impression: Chronic flank pain Patient/Caregiver Discharge Instructions Education Materials: ED Flank Pain, Uncertain Cause Additional Instructions: The CT of the abdomen and pelvis did not reveal any cause for your right flank pain. The abdominal ultrasound did not reveal any cause for the right flank pain or right upper quadrant tenderness. The renal ultrasound also did not reveal any cause for the right flank pain. The amount of radiation that you have received in the past 6 weeks is severe. Follow-up with your primary care physician in 24 to 48 hours. Keep your appointment with a grinder machine setter in June. Return to the ED for any new or worsening symptoms. Print Language: Danish Stand Alone Forms: [employer]ocy Award Info., Patient Portal Info Letter KIANNA/PERRY Supervising Physician KIANNA/PERRY Supervising Physician: Dr. Gisella CARNES Narrative [facility] hospital course: 84-year-old female presents to the ED for her third visit for right flank pain and right CVA pain for the past 6 to 7 weeks. The pain is exacerbated by nothing and improved with urination. There is no association with food. Her appetite is good. She states she feels pressure and a balloon type feeling. She has had dysuria for the past 3 days. She was seen by her primary care physician and does not have an appointment with a grinder machine setter until June. She is becoming increasingly concerned due to the ongoing pain. She denies any fever or chills, nausea or vomiting, diarrhea or constipation. She has no pain with bowel movements. Alert and oriented, afebrile, nontoxic-appearing 84-year-old female, sitting a wheelchair, no acute distress. Vital signs are normal with the exception of a blood pressure of 156/71. Lungs are clear, cardiovascular regular rate and rhythm without murmurs. Right-sided CVA tenderness noted. Bowel sounds are present, abdomen is soft with right upper quadrant abdominal tenderness to palpation. Positive Singh sign. No rebound or guarding. CBC is normal, chemistry panel reveals a minimally elevated chloride of 109 with normal potassium, BUN and creatinine. Glucose was elevated at 147. LFTs and lipase are normal. Urinalysis reveals clear light yellow urine with a specific gravity of 1.019 with negative ketones, nitrate, leukocyte Estrace, or bacteria. There is 5 RBCs noted. This urinalysis is similar to the previous 5-6 urinalysis obtained since 04/06/2025. IMPRESSION: Atrophic right kidney. Moderate bilateral renal parenchymal scar formation. No renal or ureteral calculi, no hydronephrosis. Normal appendix. Colonic diverticulosis, no diverticulitis. No bladder mass or bladder calculi. This CT of the abdomen and pelvis is also similar to the previous two CTs obtained since 04/06/25. Due to the finding of positive Singh sign, an abdominal ultrasound will be obtained for evaluation of this new finding and at this time time we will obtain renal ultrasound of the bilateral kidneys. Clinical Information Provided by patient Medical Records Reviewed [facility] Similar lab, urinalysis, and CT of the abdomen and pelvis findings from the previous 5 visits. Meds/Rx Considered, not Ordered None Labs/Rad/Tests considered, not Ordered None Medication Administration(s) Medication Administration History Discontinued Medications Ketorolac Tromethamine (Ketorolac Inj 60 Mg/2 Ml Vial) 30 mg IM X1 ONE Stop: 05/10/25 07:44 Last Admin: 05/10/25 08:20 Dose: Not Given Documented By: CAPO Non-Admin Reason: Patient Refused
--- NOTE | 2025-05-10 15:05 | XR_ITS ---
Examination: Abdomen sonogram, Limited Date and time of exam: May 10, 2025 1516 hours INDICATIONS: Right flank pain beginning 8 days ago Technique: Real-time marino scale transabdominal sonographic images of the upper abdomen obtained. Findings: Normal gallbladder Normal common bile duct 0.3 cm Pancreatic head 2.6 cm Liver 15.4 cm irregular contour Normal hepatopedal portal venous flow Patent IVC IMPRESSION: Negative study
--- NOTE | 2025-05-10 15:05 | XR_ITS ---
Examination: Retroperitoneal ultrasound, complete Technique: Multiple high resolution grayscale images of the retroperitoneum obtained, including kidneys and bladder. Exam date and time:May 10, 2025 1520 hours INDICATIONS: Flank pain beginning 8 weeks ago. FINDINGS: Right kidney 7.7 cm renal cortex 1.2 cm Left kidney 10.5 cm cortex 1.2 cm Moderate bilateral renal parenchymal scar formation No hydronephrosis No bladder mass or bladder calculi, bladder prevoid volume 108 cc IMPRESSION: Atrophic right kidney Bilateral renal cortical thinning Moderate bilateral renal parenchymal scar formation
[2025-05-10 16:35] VITALS: BP 191/70; PULSE 75; RESP 18; TEMP 36.6; O2SAT 99
== END 2025-05-10 17:05 | disposition home or self-care (01) ==
PROVIDERS: Nurse Practitioner Family; Emergency Provider Emergency Medicine; PCP Physician Assistant
DX: K57.30 Diverticulosis of large intestine without perforation or abscess without bleeding (principal); N28.89 Other specified disorders of kidney and ureter; N26.1 Atrophy of kidney (terminal)
CPT/HCPCS: 36415; 74176; 76705; 76770; 80053; 81001; 83690; 85025; 87077; 87086; 87186; 99284

== ENCOUNTER → 2025-06-16 | Outpatient (BNVA) | payer MEDICARE, BC, SELFPAY | END | disposition home or self-care (01) | PROVIDERS: PCP Physician Assistant; Referring Provider Physician Assistant; Visit Provider Urology | DX: N39.0 Urinary tract infection, site not specified (principal); N32.81 Overactive bladder; E11.9 Type 2 diabetes mellitus without complications; I10 Essential (primary) hypertension; E66.9 Obesity, unspecified; Z71.3 Dietary counseling and surveillance; Z68.32 Body mass index [BMI] 32.0-32.9, adult; N27.0 Small kidney, unilateral; K57.30 Diverticulosis of large intestine without perforation or abscess without bleeding; E78.00 Pure hypercholesterolemia, unspecified; E03.9 Hypothyroidism, unspecified | CPT/HCPCS: 81003; 99213; G0463 ==

== ENCOUNTER → 2025-06-17 | Outpatient (CLI) | payer MEDICARE, BC, SELFPAY ==
[2025-06-17 08:35] LABS: Basophils # (Auto) 0.1 Thou/mm3 (0.0-0.2); Basophils % (Auto) 1 % (0-2.5); Eosinophils # (Auto) 0.5 Thou/mm3 (0.0-0.5); Eosinophils % (Auto) 7 % (0-10); Hematocrit 39.1 % (36.0-46.0); Hemoglobin 12.5 g/dL (12.0-16.0); Immature Granulocytes Auto 0.02 Thou/mm3 (0.00-0.00); Lymphocytes # (Auto) 2.0 Thou/mm3 (1.0-4.8); Lymphocytes % (Auto) 29 % (10-50); Mean Corpuscular HGB Conc 32.0 g/dl (31.0-37.0); Mean Corpuscular Hemoglobin 29.8 pg (25.0-35.0); Mean Corpuscular Volume 93 fL (80-100); Monocytes # (Auto) 0.6 Thou/mm3 (0.0-0.8); Monocytes % (Auto) 8 % (0-12); Neutrophils # (Auto) 3.8 Thou/mm3 (1.8-7.7); Neutrophils % (Auto) 55 % (37-80); Nucleated Red Blood Cell # 0.00 Thou/mm3 (0.00-0.00); Nucleated Red Blood Cell % 0 /100 WBC (0); RDW Standard Deviation 47.0 fL (36.4-46.3); Red Blood Count 4.20 Miln/mm3 (4.00-5.20); White Blood Count 7.0 Thou/mm3 (3.6-11.0)
[2025-06-17 08:42] LABS: Glucose Estimated Average 166 mg/dL (80-131); Hemoglobin A1C 7.4 % Hgb (4.8-6.0)
[2025-06-17 08:50] LABS: Parathyroid Hormone Intact 69.4 pg/ml (18.5-88.0)
[2025-06-17 09:01] LABS: Alanine Aminotransferase 10 U/L (10-49); Albumin, Serum 4.4 gm/dL (3.4-4.8); Albumin/Globulin Ratio 1.5 (1.2-2.2); Alkaline Phosphatase 79 U/L (46-116); Anion Gap 10 (7-16); Aspartate Amino Transferase 23 U/L (0-34); BUN/Creatinine Ratio 16 Ratio (12-20); Bilirubin,Total 0.4 mg/dL (0.3-1.2); Blood Urea Nitrogen 21 mg/dL (9-23); Calcium 9.6 mg/dL (8.3-10.6); Calcium (Corrected) 9.6 mg/dL (8.5-10.1); Carbon Dioxide 27.1 mMol/L (20.0-31.0); Cardiac Risk Estimate 4.6 RATIO (3.7-5.6); Chloride 104 mMol/L (98-107); Cholesterol 214 mg/dL (132-200); Creatinine (Component) 1.3 mg/dL (0.6-1.3); Globulin 2.9 gm/dL (2.3-3.5); Glucose 141 mg/dL (74-106); HDL Cholesterol 47 mg/dL (40-60); LDL Cholesterol,Calculated 138 mg/dL (0-130); Osmolality,Calculated 286 (275-295); Phosphorous 2.8 mg/dL (2.4-5.1); Potassium 4.7 mMol/L (3.4-5.1); Sodium 141 mMol/L (136-145); Total Protein 7.3 gm/dL (5.7-8.2); Triglycerides 147 mg/dL (30-150); eGFR 41 See Note
[2025-06-17 09:21] LABS: Vitamin B12 477 pg/mL (211-911); Vitamin D 25 Hydroxy Total 28.7 ng/mL (7.3-40.2)
[2025-06-17 09:22] LABS: Platelet Count 159 Thou/mm3 (140-440)
== END | disposition home or self-care (01) ==
LOC: COPL 06:49
PROVIDERS: PCP Physician Assistant; Referring Provider Internal Medicine Nephrology; Visit Provider Internal Medicine Nephrology
DX: I12.9 Hypertensive chronic kidney disease with stage 1 through stage 4 chronic kidney disease, or unspecified chronic kidney disease (principal); E11.22 Type 2 diabetes mellitus with diabetic chronic kidney disease; N18.32 Chronic kidney disease, stage 3b; E55.9 Vitamin D deficiency, unspecified; E11.65 Type 2 diabetes mellitus with hyperglycemia; E78.5 Hyperlipidemia, unspecified; E03.9 Hypothyroidism, unspecified
CPT/HCPCS: 36415; 80053; 80061; 81001; 82043; 82306; 82570; 82607; 83036; 83970; 84100; 85025

== ENCOUNTER 2025-07-20 17:50 | Emergency (ER) | payer MEDICARE, BC, SELFPAY ==
[2025-07-20 18:18] VITALS: PULSE 82; BMI 32.5
--- NOTE | 2025-07-20 18:28 | XR_ITS ---
Examination: CT chest, without intravenous contrast. Sagittal and coronal 2-D reconstructions. Exam date and time: July 20, 2025, 1857 hrs. Indications: Ground-level fall today with injury to the chest, chest pain CTDI:vol (mGy) 14.5 DLP: (mGycm) 533 Technique: Multiple 3.0 mm axial sections of the chest to been obtained. Bone and lung density settings are obtained. Sagittal and coronal 2-D reconstructions have been obtained. Low dose protocols were performed. One or more of the following dose reduction techniques were used; automated exposure control, adjustment of the mA and/or KV according to patient size, use of iterative reconstruction technique. Findings: Thoracic aorta pulmonary arteries intact. No hemopericardium. No pneumothorax or pulmonary contusion. 5 mm pulmonary nodule posterior right lung image 70 The manubrium and the body the sternum are intact No thoracic vertebral body compression fracture No acute rib fractures No visualized liver or splenic lesion No gallstones No pancreatic mass, normal adrenal glands No perinephric hematoma Visualized abdominal aorta intact Nondisplaced fracture right L2 transverse process image 200 Impression: Thoracic aorta pulmonary arteries intact No pneumothorax or pulmonary contusion. No hemothorax 5 mm pulmonary nodule posterior right lung, follow-up six-month imaging is needed Nondisplaced fracture right L2 transverse process
--- NOTE | 2025-07-20 18:28 | XR_ITS ---
Examination: CT lumbar spine, without contrast. 2-D sagittal reconstructions. 2-D coronal reconstructions. 3-D reconstructions. Date and time of exam:July,, 1900 hrs. Indications: Patient fell backwards today with injury to lower back, lower back pain CTDI: vol (mGy):30.4 DLP: (mGycm):760 Technique: Multiple 1.25 mm axial sections of the lumbar spine without contrast have been obtained. 2-D sagittal and coronal reconstructions have been obtained. 3-D reconstructions have been obtained. Low dose protocols were performed. One or more of the following dose reduction techniques were used; automated exposure control, adjustment of the mA and/or KV according to patient size, use of iterative reconstruction technique. Findings: Prominent osteopenia. No lumbar vertebral body compression fracture. Advanced disc narrowing L5-S1. Acute nondisplaced fractures right transverse processes L2, L3 Lumbar pedicles and laminae appear intact Impression: No lumbar vertebral body compression fracture. Acute nondisplaced fractures right transverse processes L2, L3
--- NOTE | 2025-07-20 18:31 | PD.EDFALL ---
ED Fall Injury RME/HPI General Chief Complaint: Fall Stated Complaint: FALL Time Seen by Provider: 07/20/25 18:24 Arrival date/time: 07/20/25 17:50 RME / HPI RME / HPI Narrative: 85-year-old female was brought in by EMS for evaluation regarding ground-level fall. Patient tripped and fell landing on the trash can resulting to pain to the right posterior chest, described as dull ache, severity moderate. Patient also complained of low back pain described as dull ache, severity moderate. Denies any head injury denies any headache denies any neck pain denies any abdominal pain. Denies any other complaints no medication was taken prior to arrival. Patient is not taking any blood thinner. Denies any pelvic pain or hip pain. Related Data Home Medications ?Medication ?Instructions ?Recorded ?Confirmed levothyroxine 50 mcg tablet 50 mcg PO EVERYOTHERDAY 06/29/18 06/16/25 ezetimibe 10 mg tablet 10 mg PO QDAY 03/12/21 06/16/25 lisinopril 40 mg tablet 20 mg PO QDAY 03/12/21 06/16/25 cholecalciferol (vitamin D3) 25 25 mcg PO QDAY 09/16/22 06/16/25 mcg (1,000 unit) tablet (Vitamin D3) Previous Rx's ?Medication ?Instructions ?Recorded ciprofloxacin HCl 500 mg tablet 500 mg PO BID #20 tabs 09/18/23 (Cipro) amoxicillin 875 mg-potassium 1 tab PO BID #20 tabs 10/01/23 clavulanate 125 mg tablet amoxicillin 875 mg-potassium 1 tab PO Q12H #14 tabs 11/23/23 clavulanate 125 mg tablet dicyclomine 10 mg capsule 10 mg PO TID PRN abdominal pain 11/23/23 #20 caps ciprofloxacin HCl 500 mg tablet 500 mg PO BID #10 tabs 02/17/24 (Cipro) dicyclomine 20 mg tablet 20 mg PO BID #14 tabs 02/17/24 metronidazole 500 mg tablet 500 mg PO BID #10 tabs 02/17/24 hydrocodone 5 mg-acetaminophen 325 1 tab PO Q6H PRN pain #14 tabs 06/13/24 mg tablet acetaminophen 500 mg tablet 1,000 mg (2 x 500 mg) PO Q6H PRN 10/24/24 (Tylenol Extra Strength) pain #30 tabs dicyclomine 20 mg tablet 20 mg PO Q6HR PRN abdominal pain 10/24/24 #30 tabs acetaminophen 500 mg tablet 500 mg PO Q6H PRN pain #20 tabs 04/06/25 doxycycline hyclate 100 mg tablet 100 mg PO BID #14 tabs 04/06/25 acetaminophen 300 mg-codeine 30 mg 1 tab PO Q8H PRN pain #20 tabs 07/20/25 tablet Allergies Allergy/AdvReac Type Severity Reaction Status Date / Time Sulfa (Sulfonamide Allergy Severe Swelling Verified 07/20/25 18:23 Antibiotics) of Lip/Tongue/Throat Review of Systems Review of Systems Narrative Review of Systems: Review of system reviewed and within normal limits except mentioned in HPI ED Exam Narrative Physical exam: VITAL SIGNS: Reviewed. GENERAL APPEARANCE: Alert and interactive, follows commands, no acute distress, HEAD AND FACE: Non-traumatic. ENT: PERRL, pink conjunctivitis, eyelid no trauma, Mucous membrane moist. NECK: Supple, nontender, no nuchal rigidity. CHEST: Right posterior chest tenderness, no crepitus, no paradoxical movement, no retractions. LUNGS: Clear, well ventilated, symmetric, no rales, no wheezing, no ronchi, no stridor, good breath sounds bilaterally. HEART: Regular rate, regular rhythm, no murmur, no gallops. ABDOMEN: Soft, positive bowel sounds, nondistended, no guarding, nontender, no rebound, no masses, RECTAL: Deferred. GENITAL: Deferred. NEUROLOGICAL: Gross motor function intact sensory function intact, Appropriate for age. MUSCULOSKELETAL: low back tenderness, full range of motion. EXTREMITIES: Nontender, full range of motion. SKIN: Color pink, dry, no rash, no lacerations, no abrasions, no contusions. LYMPHATICS: Deferred. Course Quality Measures none Orders Category Date Time Status CT chest wo con Stat Exams 07/20/25 18:[address] lumbar spine wo con Stat Exams 07/20/25 18:28 Completed HYDROcodone*/APAP 5/325 [[place] 5/325] Med 07/20/25 18:28 Discontinued 1 tab PO X1 ONE Vital Signs Vital signs: Vital Signs Pulse Rate 75 07/20/25 18:46 Respiratory Rate 15 07/20/25 18:46 Blood Pressure 140/66 H 07/20/25 18:46 Pulse Oximetry (%) 99 07/20/25 18:46 Oxygen Delivery Method Room Air 07/20/25 18:46 Fall MDM Narrative MDM Narrative:: 85-year-old female was brought in by EMS for evaluation regarding ground-level fall. Patient tripped and fell landing on the trash can resulting to pain to the right posterior chest, described as dull ache, severity moderate. Patient also complained of low back pain described as dull ache, severity moderate. Denies any head injury denies any headache denies any neck pain denies any abdominal pain. Denies any other complaints no medication was taken prior to arrival. Patient is not taking any blood thinner. Denies any pelvic pain or hip pain. CT scan of the chest came back unremarkable. CT scan of the lumbar spine showed No lumbar vertebral body compression fracture. Acute nondisplaced fractures right transverse processes L2, L3 Results discussed with the patient and family. Patient was able to ambulate to the wheelchair from bed. Stable for discharge home. Patient data External records reviewed:: None Clinical information provided by:: patient Social determinants that could affect healthcare access:: none Patient has the following chronic illnesses:: Hypertension How is presenting disease/condition affected by chronic disease/condition?: uneffected by Evaluation data The following diagnostics were reviewed and interpreted by me:: radiology exam(s) Lab and/or radiology exams considered but not ordered:: None Interpretation Summary: See results and MDM Medications / Prescriptions Medications or Prescriptions considered but not ordered:: None Medication administrations:: Medication Administration History Discontinued Medications Hydrocodone Bitart/Acetaminophen (Hydrocodone/[place] 5/325 Tablet) 1 tab PO X1 ONE Stop: 07/20/25 18:29 [place] Consultations Consultation(s) initiated? (list below): No Diagnosis Fall Differential Diagnosis: other (Fall, transverse process fracture of lumbar 2,3) Most likely diagnosis given after review of the tests above:: Transverse fractures fracture L2-L3, fall Admission Indicated Admission indicated?: not indicated Admission Request Was there a request for admission?: No Disposition Plan Disposition Plan: Discharge Discharge Attestation Discharge Attestation: The patient and all family members were given an opportunity to ask questions and understood the discharge instructions. Discharge instructions specifically effects, indications for sooner follow up or return to the emergency department, and the expected course of current diagnosis. Patient condition: Stable Discharge Plan Plan Patient Disposition: HOME (Self Care) Discharge Disposition comment: Stable Prescriptions/Referrals Prescriptions/Med Rec: New acetaminophen-codeine 300-30 mg tablet 1 tab PO Q8H PRN (Reason: pain) Qty: 20 0RF No Action levothyroxine 50 mcg Tablet 50 mcg PO EVERYOTHERDAY lisinopril 40 mg Tablet 20 mg PO QDAY ezetimibe 10 mg Tablet 10 mg PO QDAY cholecalciferol (vitamin D3) [Vitamin D3] 25 mcg (1,000 unit) Tablet 25 mcg PO QDAY dicyclomine 10 mg capsule 10 mg PO TID PRN (Reason: abdominal pain) Qty: 20 0RF amoxicillin-pot clavulanate 875-125 mg tablet 1 tab PO Q12H Qty: 14 0RF ciprofloxacin HCl [Cipro] 500 mg tablet 500 mg PO BID Qty: 10 0RF metronidazole 500 mg tablet 500 mg PO BID Qty: 10 0RF dicyclomine 20 mg tablet 20 mg PO BID Qty: 14 0RF acetaminophen [Tylenol Extra Strength] 500 mg tablet 1,000 mg PO Q6H PRN (Reason: pain) Qty: 30 0RF dicyclomine 20 mg tablet 20 mg PO Q6HR PRN (Reason: abdominal pain) Qty: 30 0RF doxycycline hyclate 100 mg tablet 100 mg PO BID Qty: 14 0RF acetaminophen 500 mg tablet 500 mg PO Q6H PRN (Reason: pain) Qty: 20 0RF ciprofloxacin HCl [Cipro] 500 mg tablet 500 mg PO BID Qty: 20 0RF amoxicillin-pot clavulanate 875-125 mg tablet 1 tab PO BID Qty: 20 0RF hydrocodone-acetaminophen 5-325 mg tablet 1 tab PO Q6H MDD 4 PRN (Reason: pain) Qty: 14 0RF Referrals: No Primary/Family,Physician [Primary Care Provider] - In 1 week Problem List Clinical Impression: Fracture of transverse process of lumbar vertebra, Fall Patient/Caregiver Discharge Instructions Discharge Activity: activity as tolerated Education Materials: How Your Back Works, How Bones Heal Additional Instructions: Thank you for the opportunity for serving you today. You are stable for discharged . You are advised to: Follow-up with your PCP in 1 to 2 days Return to ED for worsening of symptoms Increase oral fluids Take medication as prescribed Ask your PCP to refer you to physical therapy. Bedrest for a few days increase as tolerated Print Language: Chinese Stand Alone Forms: Jocy Award Info., Patient Portal Info Letter PA/CHIEF TECHNICIAN X RAY Supervising Physician PA/CHIEF TECHNICIAN X RAY Supervising Physician: MD Mercedes
[2025-07-20 18:46] VITALS: BP 140/66; PULSE 75; RESP 15; O2SAT 99
[2025-07-20 20:20] VITALS: BP 140/66; PULSE 80; RESP 16; TEMP 36.9; O2SAT 100
--- NOTE | 2025-07-20 20:23 | PC.NURSE ---
pt wants pain med now that she is being discharged
[2025-07-20] MEDS: HYDROcodone/APAP 5/325 TABLET 1 TAB PO (20:27)
== END 2025-07-20 20:38 | disposition home or self-care (01) ==
PROVIDERS: Emergency Provider Emergency Medicine
DX: S32.029A Unspecified fracture of second lumbar vertebra, initial encounter for closed fracture (principal); S32.039A Unspecified fracture of third lumbar vertebra, initial encounter for closed fracture; S29.9XXA Unspecified injury of thorax, initial encounter; W01.198A Fall on same level from slipping, tripping and stumbling with subsequent striking against other object, initial encounter
CPT/HCPCS: 71250; 72131; 99284; A9270

== ENCOUNTER → 2025-09-23 | Outpatient (CLI) | payer MEDICARE, BC, SELFPAY ==
[2025-09-23 08:37] LABS: Glucose Estimated Average 151 mg/dL (80-131); Hemoglobin A1C 6.9 % Hgb (4.8-6.0)
[2025-09-23 08:50] LABS: Alanine Aminotransferase 11 U/L (10-49); Albumin, Serum 4.7 gm/dL (3.4-4.8); Albumin/Globulin Ratio 1.8 (1.2-2.2); Alkaline Phosphatase 80 U/L (46-116); Anion Gap 10 (7-16); Aspartate Amino Transferase 25 U/L (0-34); BUN/Creatinine Ratio 17 Ratio (12-20); Bilirubin,Total 0.4 mg/dL (0.3-1.2); Blood Urea Nitrogen 20 mg/dL (9-23); Calcium 9.6 mg/dL (8.3-10.6); Calcium (Corrected) 9.6 mg/dL (8.5-10.1); Carbon Dioxide 26.7 mMol/L (20.0-31.0); Cardiac Risk Estimate 3.9 RATIO (3.7-5.6); Chloride 106 mMol/L (98-107); Cholesterol 189 mg/dL (132-200); Creatinine (Component) 1.2 mg/dL (0.6-1.3); Globulin 2.6 gm/dL (2.3-3.5); Glucose 122 mg/dL (74-106); HDL Cholesterol 49 mg/dL (40-60); LDL Cholesterol,Calculated 120 mg/dL (0-130); Osmolality,Calculated 288 (275-295); Potassium 4.6 mMol/L (3.4-5.1); Sodium 143 mMol/L (136-145); Thyroid Stimulating Hormone 2.12 uIU/mL (0.55-4.78); Total Protein 7.3 gm/dL (5.7-8.2); Triglycerides 102 mg/dL (30-150); eGFR 45 See Note
== END | disposition home or self-care (01) ==
LOC: COPL 06:51
PROVIDERS: PCP Family Medicine; Referring Provider Physician Assistant; Visit Provider Physician Assistant
DX: I10 Essential (primary) hypertension (principal); E78.5 Hyperlipidemia, unspecified; E03.9 Hypothyroidism, unspecified; E11.65 Type 2 diabetes mellitus with hyperglycemia
CPT/HCPCS: 36415; 80053; 80061; 83036; 84443